=== PATIENT | female | born 1985 | race Asian ===

== ENCOUNTER 2016-10-03 17:06 | Emergency (ER) | payer MEDICAID, OTHER ==
[~2016-10-03 17:06] MED LIST: NO HOME MEDS; WELL100T PO
[2016-10-03] MEDS ORDERED: VENLAFAXINE **XR** 75MG CAPSULE As Ordered ONE (17:32)
--- NOTE | 2016-10-03 18:25 | EDDOCDS ---
Nurse's Notes [facility] Name: Liana Nguyen Age: 30 yrs Sex: Female : 1985 Arrival Date: 10/03/2016 Time: 17:06 Bed 14 Private MD: NO PRIMARY PHYSICIAN, . Diagnosis: Encounter for issue of repeat prescription Presentation: 10/03 17:12 Presenting complaint: Patient states: Out of Effexor and has an appointment the 30th jo3 with PCP. Adult Sepsis Screening: The patient does not have new or worsening altered mentation. Patient's respiratory rate is less than 22. Systolic blood pressure is greater than 100. Patient has a qSOFA score of 0- Negative Sepsis Screen. Suicide/Homicide risk assessment- the patient denies having any suicidal and/or homicidal ideations and does not present with any other emotional, behavioral or mental health complaints. Status: Patient is not a coordinator volunteer services or dependent. Transition of care: patient was not received from another setting of care. 17:12 Acuity: LISSETH Level 5 jo3 17:12 Method Of Arrival: Walkin/Carried/Asstd jo3 Triage Assessment: 17:16 General: Appears in no apparent distress, Behavior is cooperative. HIV screening NA for jo3 this visit Offered previously. Neurological: Level of Consciousness is awake, alert, Oriented to person, place, time. Respiratory: Airway is patent Respiratory effort is even, unlabored. 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 Effexor XR 150 mg Oral cp24 1 cap once daily (Last dose: 09/29/2016) 2. Strattera 10 mg oral cap Daily 3. trazodone 150 mg Oral tab nightly - PMHx: Depression; - PSHx: none; - Social history: Smoking status: Patient uses tobacco products, heavy tobacco smoker. No barriers to communication noted, The patient speaks fluent Macedonian, Speaks appropriately for age. - Family history: Not pertinent. - : The pt / caregiver states he / she is not on anticoagulants. Home medication list is obtained from the patient. - Exposure Risk Screening:: None identified. Screenin:36 Screening information is obtained from the patient. Fall risk: No risks identified. dsf Assistance ADL's: requires no assistance with activities of daily living. Abuse/DV Screen: The patient / caregiver reports he/she is: not in a situation that causes fear, pain or injury. Nutritional screening: No deficits noted. Advance Directives: Currently, there is no health care proxy. home support is adequate. Assessment: 17:35 General: pt states " I feel like a crack head getting this here. Are the pharmacy's dsf opened?" Pt informed she received a dose here and she can get her prescription tomorrow. Dr. Porter notified . 17:36 Adult Sepsis Screening: The patient does not have new or worsening altered mentation. dsf Patient's respiratory rate is less than 22. Systolic blood pressure is greater than 100. Patient has a qSOFA score of 0- Negative Sepsis Screen. General: Appears in no apparent distress, Behavior is appropriate for age, cooperative. Pain: Denies pain. Neurological: Level of Consciousness is awake, alert. Cardiovascular: No deficits noted. Respiratory: No deficits noted. Derm: Skin is pink, warm & dry. 18:24 General: Appears in no apparent distress, Behavior is appropriate for age, cooperative. dsf Neurological: Level of Consciousness is awake, alert. Cardiovascular: Capillary refill < 3 seconds. Respiratory: Airway is patent Respiratory effort is even, unlabored, Respiratory pattern is regular, symmetrical. Derm: Skin is pink, warm & dry. Social Work Consult: 18:14 Social Work Note: PT states she was d/c from dual dx rehab in [place], [place] recently, is ac out of her Effexor and will not be able to see her PCP, Dr. Arguello until 10/11/16. Pt is currently attending IOP at [facility] Addiction services. Pt denies SI/HI, no AH/VH. Pt provided with emergency #'s. No further intervention required at this time. Vital Signs: 17:07 BP 113 / 80; Pulse 100; Resp 18 S; Temp 97.9(O); Pulse Ox 100% on R/A; Weight 77.11 kg gr2 (R); Height 5 ft. 4 in. (162.56 cm) (R); Pain 3/10; 17:07 Body Mass Index 29.18 (77.11 kg, 162.56 cm) gr2 Vitals: 17:07 Log In Time: October 03, 2016 at 17:07. gr2 ED Course: 17:07 Patient visited by Sarah Henriquez. gr2 17:07 NO PRIMARY PHYSICIAN, . is Private Physician. gr2 17:07 Patient moved to Waiting gr2 17:09 Patient visited by Sarah Henriquez. gr2 17:09 Patient moved to Pre RCE gr2 17:13 Triage Initiated jo3 17:23 Yinka Porter MD is Attending Physician. br1 17:23 Patient moved to 14 sew 17:32 Patient visited by Yinka Porter MD. br1 17:36 Patient visited by Argentina Esquivel RN. dsf 17:36 The patient / caregiver is instructed regarding the plan of care and ED course. dsf 17:36 No IV's were initiated during this patient's visit. No procedures done that require dsf assistance. 17:40 Nikita Arguello MD is Referral Physician. br1 17:40 [facility] is Referral Physician. br1 17:58 [facility] Payment Agreement was scanned into [employer] and attached to record. [email or web address] Administered Medications: 17:35 Drug: Venlafaxine 150 mg [venlafaxine ER 75 mg capsule,extended release 24 hr (2 caps)] dsf Route: PO; Order Results: There are currently no results for this order. Outcome: 17:36 No special radiology studies were completed. dsf 17:41 Discharge ordered by Provider. br1 18:23 Discharge Assessment: Patient awake, alert and oriented x 3. No cognitive and/or dsf functional deficits noted. Patient verbalized understanding of disposition instructions. patient administered narcotics - no. The following High Risk Discharge criteria are identified: None. Discharged to home ambulatory. Condition: stable. Discharge instructions given to patient, Instructed on discharge instructions, follow up and referral plans. medication usage, Demonstrated understanding of instructions, medications, Pt was receptive of discharge instructions/ teaching. Prescriptions given X 1. Property sent home with patient. 18:24 Patient left the ED. dsf Signatures: Georges Camacho PSA PSA Mary DailyRN RN jo3 Yinka Porter MD MD br1 Argentina Esquivel RN RN dsf Lindsay Cha [facility] Sarah Henriquez gr2 Luanne Rosenberg, Reg Reg ks16 Corrections: (The following items were deleted from the chart) 17:17 17:12 Presenting complaint: Patient states: Out of medications and has an appointment jo3 the with PCP joReal : 17:12 Adult Sepsis Screening: The patient does not have new or worsening altered jo3 mentation. Patient's respiratory rate is less than 22. Systolic blood pressure is greater than 100. Patient has a qSOFA score of 0- Negative Sepsis Screen. jo3 MTDD
--- NOTE | 2016-10-03 18:25 | EDDOCDS ---
Physician Documentation [facility] Name: Liana Nguyen Age: 30 yrs Sex: Female : 1985 Arrival Date: 10/03/2016 Time: 17:06 Bed 14 Private MD: NO PRIMARY PHYSICIAN, . Disposition: 10/03/16 17:41 Discharged to Home/Self Care. Impression: Encounter for issue of repeat prescription. - Condition is Stable. - Discharge Instructions: Depression, Adult, Medicine Refill at the Emergency Department. - Prescriptions for Effexor XR 150 mg Oral capsule,extended release 24hr - take 1 capsule by ORAL route once daily; 7 capsule. - Medication Reconciliation, Local Pharmacy Hours form. - Follow up: Nikita Arguello MD; When: 1 week; Reason: Recheck today's complaints. Follow up: [facility]; When: 4 - 5 days; Reason: Recheck today's complaints. - Problem is new. - Symptoms are resolved. - Notes: You were seen in the ED for a refill of your Effexor XR 150 mg daily. A short refill was provided. Please keep your appointment with your primary doctor in 1 week for ongoing care. You may also establish mental health care as an outpatient at the referral provided to you - please call to arrange to be seen. Return to the ED for any worsening depression, thoughts of harming self or others or any other concerns. Historical: - Allergies: No known drug Allergies; - Home Meds: 1. Effexor XR 150 mg Oral cp24 1 cap once daily (Last dose: 09/29/2016) 2. Strattera 10 mg oral cap Daily 3. trazodone 150 mg Oral tab nightly - PMHx: Depression; - PSHx: none; - Social history: Smoking status: Patient uses tobacco products, heavy tobacco smoker. No barriers to communication noted, The patient speaks fluent [place] Islander, Speaks appropriately for age. - Family history: Not pertinent. - : The pt / caregiver states he / she is not on anticoagulants. Home medication list is obtained from the patient. - Exposure Risk Screening:: None identified. 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 4 in. (162.56 cm) (R); Pain 3/10; 17:07 Body Mass Index 29.18 (77.11 kg, 162.56 cm) gr2 MDM: 17:32 Venlafaxine Extended Release 24 hour Capsule 150 mg PO once ordered. br1 17:37 Consult PFS/PSA/Actuarial Intern: Resources/Social Work ordered. br1 17:58 Financial registration complete. ks16 17:58 [facility] Payment Agreement was scanned into [employer] and attached to record. ks16 Administered Medications: 17:35 Drug: Venlafaxine 150 mg [venlafaxine ER 75 mg capsule,extended release 24 hr (2 caps)] dsf Route: PO; Signatures: Mary Dumont RN RN jo3 Yinka Porter MD MD br1 Argentina Esquivel RN RN dsf Luanne Rosenberg, Reg Reg ks16 The chart was reviewed and I authenticate all verbal orders and agree with the evaluation and treatment provided.Attachments: 17:58 [facility] Payment Agreement ks16 MTDD
--- NOTE | 2016-10-05 19:25 | EDDOCDS ---
Nurse's Notes [facility] Name: Liana Nguyen Age: 30 yrs Sex: Female : 1985 Arrival Date: 10/03/2016 Time: 17:06 Bed 14 Private MD: NO PRIMARY PHYSICIAN, . Diagnosis: Encounter for issue of repeat prescription Presentation: 10/03 17:12 Presenting complaint: Patient states: Out of Effexor and has an appointment the 30th jo3 with PCP. Adult Sepsis Screening: The patient does not have new or worsening altered mentation. Patient's respiratory rate is less than 22. Systolic blood pressure is greater than 100. Patient has a qSOFA score of 0- Negative Sepsis Screen. Suicide/Homicide risk assessment- the patient denies having any suicidal and/or homicidal ideations and does not present with any other emotional, behavioral or mental health complaints. Status: Patient is not a food services coordinator or dependent. Transition of care: patient was not received from another setting of care. 17:12 Acuity: LISSETH Level 5 jo3 17:12 Method Of Arrival: Walkin/Carried/Asstd jo3 Triage Assessment: 17:16 General: Appears in no apparent distress, Behavior is cooperative. HIV screening NA for jo3 this visit Offered previously. Neurological: Level of Consciousness is awake, alert, Oriented to person, place, time. Respiratory: Airway is patent Respiratory effort is even, unlabored. 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 Effexor XR 150 mg Oral cp24 1 cap once daily (Last dose: 09/29/2016) 2. Strattera 10 mg oral cap Daily 3. trazodone 150 mg Oral tab nightly - PMHx: Depression; - PSHx: none; - Social history: Smoking status: Patient uses tobacco products, heavy tobacco smoker. No barriers to communication noted, The patient speaks fluent Polish, Speaks appropriately for age. - Family history: Not pertinent. - : The pt / caregiver states he / she is not on anticoagulants. Home medication list is obtained from the patient. - Exposure Risk Screening:: None identified. Screenin:36 Screening information is obtained from the patient. Fall risk: No risks identified. dsf Assistance ADL's: requires no assistance with activities of daily living. Abuse/DV Screen: The patient / caregiver reports he/she is: not in a situation that causes fear, pain or injury. Nutritional screening: No deficits noted. Advance Directives: Currently, there is no health care proxy. home support is adequate. Assessment: 17:35 General: pt states " I feel like a crack head getting this here. Are the pharmacy's dsf opened?" Pt informed she received a dose here and she can get her prescription tomorrow. Dr. Porter notified . 17:36 Adult Sepsis Screening: The patient does not have new or worsening altered mentation. dsf Patient's respiratory rate is less than 22. Systolic blood pressure is greater than 100. Patient has a qSOFA score of 0- Negative Sepsis Screen. General: Appears in no apparent distress, Behavior is appropriate for age, cooperative. Pain: Denies pain. Neurological: Level of Consciousness is awake, alert. Cardiovascular: No deficits noted. Respiratory: No deficits noted. Derm: Skin is pink, warm & dry. 18:24 General: Appears in no apparent distress, Behavior is appropriate for age, cooperative. dsf Neurological: Level of Consciousness is awake, alert. Cardiovascular: Capillary refill < 3 seconds. Respiratory: Airway is patent Respiratory effort is even, unlabored, Respiratory pattern is regular, symmetrical. Derm: Skin is pink, warm & dry. Social Work Consult: 18:14 Social Work Note: PT states she was d/c from dual dx rehab in [place], [place] recently, is ac out of her Effexor and will not be able to see her PCP, Dr. Arguello until 10/11/16. Pt is currently attending IOP at [facility] Addiction services. Pt denies SI/HI, no AH/VH. Pt provided with emergency #'s. No further intervention required at this time. Vital Signs: 17:07 BP 113 / 80; Pulse 100; Resp 18 S; Temp 97.9(O); Pulse Ox 100% on R/A; Weight 77.11 kg gr2 (R); Height 5 ft. 4 in. (162.56 cm) (R); Pain 3/10; 17:07 Body Mass Index 29.18 (77.11 kg, 162.56 cm) gr2 Vitals: 17:07 Log In Time: October 03, 2016 at 17:07. gr2 ED Course: 17:07 Patient visited by Sarah Henriquez. gr2 17:07 NO PRIMARY PHYSICIAN, . is Private Physician. gr2 17:07 Patient moved to Waiting gr2 17:09 Patient visited by Sarah Henriquez. gr2 17:09 Patient moved to Pre RCE gr2 17:13 Triage Initiated jo3 17:23 Yinka Porter MD is Attending Physician. br1 17:23 Patient moved to 14 sew 17:32 Patient visited by Yinka Porter MD. br1 17:36 Patient visited by Argentina Esquivel RN. dsf 17:36 The patient / caregiver is instructed regarding the plan of care and ED course. dsf 17:36 No IV's were initiated during this patient's visit. No procedures done that require dsf assistance. 17:40 Nikita Arguello MD is Referral Physician. br1 17:[address] [facility] is Referral Physician. br1 17:58 [facility] Payment Agreement was scanned into [employer] and attached to record. ks16 22:14 T-Sheet-- Draft Copy was scanned into [employer] and attached to record. klr Administered Medications: 17:35 Drug: Venlafaxine 150 mg [venlafaxine ER 75 mg capsule,extended release 24 hr (2 caps)] dsf Route: PO; Order Results: There are currently no results for this order. Outcome: 17:36 No special radiology studies were completed. dsf 17:41 Discharge ordered by Provider. br1 18:23 Discharge Assessment: Patient awake, alert and oriented x 3. No cognitive and/or dsf functional deficits noted. Patient verbalized understanding of disposition instructions. patient administered narcotics - no. The following High Risk Discharge criteria are identified: None. Discharged to home ambulatory. Condition: stable. Discharge instructions given to patient, Instructed on discharge instructions, follow up and referral plans. medication usage, Demonstrated understanding of instructions, medications, Pt was receptive of discharge instructions/ teaching. Prescriptions given X 1. Property sent home with patient. 18:24 Patient left the ED. dsf Signatures: Georges Camacho, PSA PSA Mary Daily RN RN jo3 Yinka Porter MD MD br1 Argentina Esquivel RN RN dsf Lindsay Cha Gainslee gr2 Luanne Rosenberg Reg Reg ks16 Estrella Sheppard Corrections: (The following items were deleted from the chart) 17:17 17:12 Presenting complaint: Patient states: Out of medications and has an appointment jo3 the with PCP jo3 17:17 17:12 Adult Sepsis Screening: The patient does not have new or worsening altered jo3 mentation. Patient's respiratory rate is less than 22. Systolic blood pressure is greater than 100. Patient has a qSOFA score of 0- Negative Sepsis Screen. jo3 Chart Complete MTDD
--- NOTE | 2016-10-05 19:25 | EDDOCDS ---
Physician Documentation [facility] Name: Liana Nguyen Age: 30 yrs Sex: Female : 1985 Arrival Date: 10/03/2016 Time: 17:06 Bed 14 Private MD: NO PRIMARY PHYSICIAN, . Disposition: 10/03/16 17:41 Discharged to Home/Self Care. Impression: Encounter for issue of repeat prescription. - Condition is Stable. - Discharge Instructions: Depression, Adult, Medicine Refill at the Emergency Department. - Prescriptions for Effexor XR 150 mg Oral capsule,extended release 24hr - take 1 capsule by ORAL route once daily; 7 capsule. - Medication Reconciliation, Local Pharmacy Hours form. - Follow up: Nikita Arguello MD; When: 1 week; Reason: Recheck today's complaints. Follow up: [facility]; When: 4 - 5 days; Reason: Recheck today's complaints. - Problem is new. - Symptoms are resolved. - Notes: You were seen in the ED for a refill of your Effexor XR 150 mg daily. A short refill was provided. Please keep your appointment with your primary doctor in 1 week for ongoing care. You may also establish mental health care as an outpatient at the referral provided to you - please call to arrange to be seen. Return to the ED for any worsening depression, thoughts of harming self or others or any other concerns. Historical: - Allergies: No known drug Allergies; - Home Meds: 1. Effexor XR 150 mg Oral cp24 1 cap once daily (Last dose: 09/29/2016) 2. Strattera 10 mg oral cap Daily 3. trazodone 150 mg Oral tab nightly - PMHx: Depression; - PSHx: none; - Social history: Smoking status: Patient uses tobacco products, heavy tobacco smoker. No barriers to communication noted, The patient speaks fluent Palestinian, Speaks appropriately for age. - Family history: Not pertinent. - : The pt / caregiver states he / she is not on anticoagulants. Home medication list is obtained from the patient. - Exposure Risk Screening:: None identified. 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 4 in. (162.56 cm) (R); Pain 3/10; 17:07 Body Mass Index 29.18 (77.11 kg, 162.56 cm) gr2 MDM: 17:32 Venlafaxine Extended Release 24 hour Capsule 150 mg PO once ordered. br1 17:37 Consult PFS/PSA/Record Pressman: Resources/Social Work ordered. br1 17:58 Financial registration complete. ks16 17:58 [facility] Payment Agreement was scanned into [employer] and attached to record. ks16 22:14 T-Sheet-- Draft Copy was scanned into [employer] and attached to record. klr Administered Medications: 17:35 Drug: Venlafaxine 150 mg [venlafaxine ER 75 mg capsule,extended release 24 hr (2 caps)] dsf Route: PO; Signatures: Mary Dumont RN RN jo3 Yinka Porter MD MD br1 Argentina Esquivel RN RN dsf Luanne Rosenberg, Reg Reg ks16 Estrella Sheppard klr The chart was reviewed and I authenticate all verbal orders and agree with the evaluation and treatment provided.Attachments: 17:58 [facility] Payment Agreement ks16 22:14 T-Sheet-- Draft Copy klr Chart Complete MTDD
--- NOTE | 2016-10-05 19:25 | EDDOCDS ---
Physician Documentation [facility] Name: Liana Nguyen Age: 30 yrs Sex: Female : 1985 Arrival Date: 10/03/2016 Time: 17:06 Bed 14 Private MD: NO PRIMARY PHYSICIAN, . Disposition: 10/03/16 17:41 Discharged to Home/Self Care. Impression: Encounter for issue of repeat prescription. - Condition is Stable. - Discharge Instructions: Depression, Adult, Medicine Refill at the Emergency Department. - Prescriptions for Effexor XR 150 mg Oral capsule,extended release 24hr - take 1 capsule by ORAL route once daily; 7 capsule. - Medication Reconciliation, Local Pharmacy Hours form. - Follow up: Nikita Arguello MD; When: 1 week; Reason: Recheck today's complaints. Follow up: [facility]; When: 4 - 5 days; Reason: Recheck today's complaints. - Problem is new. - Symptoms are resolved. - Notes: You were seen in the ED for a refill of your Effexor XR 150 mg daily. A short refill was provided. Please keep your appointment with your primary doctor in 1 week for ongoing care. You may also establish mental health care as an outpatient at the referral provided to you - please call to arrange to be seen. Return to the ED for any worsening depression, thoughts of harming self or others or any other concerns. Historical: - Allergies: No known drug Allergies; - Home Meds: 1. Effexor XR 150 mg Oral cp24 1 cap once daily (Last dose: 09/29/2016) 2. Strattera 10 mg oral cap Daily 3. trazodone 150 mg Oral tab nightly - PMHx: Depression; - PSHx: none; - Social history: Smoking status: Patient uses tobacco products, heavy tobacco smoker. No barriers to communication noted, The patient speaks fluent Mauritanian, Speaks appropriately for age. - Family history: Not pertinent. - : The pt / caregiver states he / she is not on anticoagulants. Home medication list is obtained from the patient. - Exposure Risk Screening:: None identified. 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 4 in. (162.56 cm) (R); Pain 3/10; 17:07 Body Mass Index 29.18 (77.11 kg, 162.56 cm) gr2 MDM: 17:32 Venlafaxine Extended Release 24 hour Capsule 150 mg PO once ordered. br1 17:37 Consult PFS/PSA/Poultry Debeaker: Resources/Social Work ordered. br1 17:58 Financial registration complete. ks16 17:58 [facility] Payment Agreement was scanned into [employer] and attached to record. ks16 22:14 T-Sheet-- Draft Copy was scanned into [employer] and attached to record. klr Administered Medications: 17:35 Drug: Venlafaxine 150 mg [venlafaxine ER 75 mg capsule,extended release 24 hr (2 caps)] dsf Route: PO; Signatures: Mary Dumont RN RN jo3 Yinka Porter MD MD br1 Argentina Esquivel RN RN dsf Luanne Rosenberg, Reg Reg ks16 Estrella Sheppard klr The chart was reviewed and I authenticate all verbal orders and agree with the evaluation and treatment provided.Attachments: 17:58 [facility] Payment Agreement ks16 22:14 T-Sheet-- Draft Copy klr Chart Complete MTDD
== END 2016-10-03 18:24 | disposition home or self-care (01) ==
LOC: M ED 17:06
DX: Z76.0 Encounter for issue of repeat prescription (principal); F32.9 Major depressive disorder, single episode, unspecified; F17.210 Nicotine dependence, cigarettes, uncomplicated; Z79.899 Other long term (current) drug therapy

== ENCOUNTER 2016-10-11 08:45 | Outpatient (RCR) | payer MEDICAID | END 2016-10-12 | disposition home or self-care (01) | LOC: M OUTALCOH 08:45 | PROVIDERS: ATTEND Psychiatry & Neurology Psychiatry | DX: F14.20 Cocaine dependence, uncomplicated (principal); F15.20 Other stimulant dependence, uncomplicated; F10.10 Alcohol abuse, uncomplicated; F17.200 Nicotine dependence, unspecified, uncomplicated ==

== ENCOUNTER → 2016-11-09 | Outpatient (RCR) | payer OTHER | LOC: M OUTALCOH 10-13 08:49 | PROVIDERS: ATTEND Psychiatry & Neurology Psychiatry | DX: F14.20 Cocaine dependence, uncomplicated (principal); F15.20 Other stimulant dependence, uncomplicated; F10.10 Alcohol abuse, uncomplicated; F17.200 Nicotine dependence, unspecified, uncomplicated ==

== ENCOUNTER 2016-12-08 11:00 | Outpatient (RCR) | payer OTHER | END 2016-12-10 | LOC: M OUTALCOH 11:00 | PROVIDERS: ATTEND Psychiatry & Neurology Psychiatry | DX: F10.10 Alcohol abuse, uncomplicated (principal); F15.20 Other stimulant dependence, uncomplicated; F14.20 Cocaine dependence, uncomplicated; F17.200 Nicotine dependence, unspecified, uncomplicated ==

== ENCOUNTER 2017-01-03 20:28 | Emergency (ER) | payer MEDICAID, OTHER ==
[~2017-01-03] VITALS: Ht 162.6 cm; Wt 77.1 kg
[2017-01-03 20:41] VITALS: BP 182/79
[2017-01-03] MEDS ORDERED: EFFE75CA75 PO (20:44)
[2017-01-03] MEDS ORDERED: STRA10CA PO (20:44)
[2017-01-03] MEDS ORDERED: TRAZ150T14 PO (20:44)
[2017-01-03] MEDS ORDERED: IBUPROFEN 600 MG TAB PO ONE (22:45)
[2017-01-03] MEDS ORDERED: TYLE325C PO (22:56)
[2017-01-03] MEDS ORDERED: IBUP600T26 PO (22:56)
== END 2017-01-03 23:16 | disposition home or self-care (01) ==
LOC: M ED 23:06
DX: J06.9 Acute upper respiratory infection, unspecified (principal); F41.9 Anxiety disorder, unspecified; F33.9 Major depressive disorder, recurrent, unspecified; F17.200 Nicotine dependence, unspecified, uncomplicated; Z87.898 Personal history of other specified conditions

== ENCOUNTER 2017-01-05 16:00 | Outpatient (RCR) | payer MEDICAID ==
[~2017-01-05 16:00] MED LIST changes: +EFFE75CA75 PO; +IBUP600T26 PO; +STRA10CA PO; +TRAZ150T14 PO; +TYLE325C PO
== END 2017-01-09 ==
LOC: M OUTALCOH 16:00
PROVIDERS: ATTEND Psychiatry & Neurology Psychiatry
DX: F14.20 Cocaine dependence, uncomplicated (principal); F15.20 Other stimulant dependence, uncomplicated; F10.10 Alcohol abuse, uncomplicated; F17.200 Nicotine dependence, unspecified, uncomplicated

== ENCOUNTER → 2017-02-09 | Outpatient (RCR) | payer MEDICAID | LOC: M OUTALCOH 01-17 14:22 | PROVIDERS: ATTEND Psychiatry & Neurology Psychiatry | DX: F14.20 Cocaine dependence, uncomplicated (principal); F15.20 Other stimulant dependence, uncomplicated; F10.10 Alcohol abuse, uncomplicated; F17.200 Nicotine dependence, unspecified, uncomplicated ==

== ENCOUNTER 2017-03-10 13:00 | Outpatient (RCR) | payer MEDICAID ==
[~2017-03-10 13:00] MED LIST changes: +IBUP-1022 PO; -IBUP600T26 PO; -TRAZ150T14 PO; +TRAZ1TAB14 PO
== END 2017-03-11 ==
LOC: M OUTALCOH 13:00
PROVIDERS: ATTEND Psychiatry & Neurology Psychiatry
DX: F14.20 Cocaine dependence, uncomplicated (principal); F15.20 Other stimulant dependence, uncomplicated; F10.10 Alcohol abuse, uncomplicated; F17.200 Nicotine dependence, unspecified, uncomplicated

== ENCOUNTER → 2017-04-11 | Outpatient (RCR) | payer MEDICAID | LOC: M OUTALCOH 03-16 11:15 | PROVIDERS: ATTEND Psychiatry & Neurology Psychiatry | DX: F14.20 Cocaine dependence, uncomplicated (principal); F15.20 Other stimulant dependence, uncomplicated; F10.10 Alcohol abuse, uncomplicated; F17.200 Nicotine dependence, unspecified, uncomplicated ==

== ENCOUNTER 2017-05-09 16:00 | Outpatient (RCR) | payer MEDICAID | END 2017-05-12 | LOC: M OUTALCOH 16:00 | PROVIDERS: ATTEND Psychiatry & Neurology Psychiatry | DX: F14.20 Cocaine dependence, uncomplicated (principal); F15.20 Other stimulant dependence, uncomplicated; F10.10 Alcohol abuse, uncomplicated; F17.200 Nicotine dependence, unspecified, uncomplicated ==

== ENCOUNTER 2017-06-10 15:00 | Outpatient (RCR) | payer MEDICAID | END 2017-06-11 | LOC: M OUTALCOH 15:00 | PROVIDERS: ATTEND Psychiatry & Neurology Psychiatry | DX: F14.20 Cocaine dependence, uncomplicated (principal); F10.10 Alcohol abuse, uncomplicated; F17.200 Nicotine dependence, unspecified, uncomplicated ==

== ENCOUNTER 2017-07-21 14:00 | Outpatient (RCR) | payer MEDICAID | END 2017-08-11 | LOC: M OUTALCOH 14:00 | PROVIDERS: ATTEND Psychiatry & Neurology Psychiatry | DX: F14.20 Cocaine dependence, uncomplicated (principal); F15.20 Other stimulant dependence, uncomplicated; F10.10 Alcohol abuse, uncomplicated; F17.200 Nicotine dependence, unspecified, uncomplicated ==

== ENCOUNTER → 2018-06-07 | Outpatient (CLI) | payer MEDICAID | LOC: M OUTALCOH 07:41 | DX: Z13.89 Encounter for screening for other disorder (principal); F15.20 Other stimulant dependence, uncomplicated ==

== ENCOUNTER 2018-06-16 13:14 | Outpatient (RCR) | payer MEDICAID | END 2018-07-12 | LOC: M OUTALCOH 06-26 10:30 | DX: F14.20 Cocaine dependence, uncomplicated (principal); F15.20 Other stimulant dependence, uncomplicated; F10.10 Alcohol abuse, uncomplicated; F17.200 Nicotine dependence, unspecified, uncomplicated ==

== ENCOUNTER → 2018-07-06 | Outpatient (REF) | payer MEDICAID, OTHER | LOC: M SFHCPLAZ 07-07 13:55 | DX: Z01.419 Encounter for gynecological examination (general) (routine) without abnormal findings (principal) ==

== ENCOUNTER 2018-07-19 16:00 | Outpatient (RCR) | payer MEDICAID | END 2018-08-11 | LOC: M OUTALCOH 07-24 10:30 | DX: F14.20 Cocaine dependence, uncomplicated (principal); F15.20 Other stimulant dependence, uncomplicated; F10.10 Alcohol abuse, uncomplicated; F17.200 Nicotine dependence, unspecified, uncomplicated ==

== ENCOUNTER → 2018-09-11 | Outpatient (RCR) | payer MEDICAID ==
[~2018-09-11] MED LIST changes: +EFFE75CA2 PO; -EFFE75CA75 PO
== END ==
LOC: M OUTALCOH 08-21 15:08
PROVIDERS: ATTEND Psychiatry & Neurology Psychiatry
DX: F14.20 Cocaine dependence, uncomplicated (principal); F15.20 Other stimulant dependence, uncomplicated; F10.10 Alcohol abuse, uncomplicated; F17.200 Nicotine dependence, unspecified, uncomplicated

== ENCOUNTER 2018-10-09 14:00 | Outpatient (RCR) | payer MEDICAID | END 2018-10-12 | LOC: M OUTALCOH 14:00 | PROVIDERS: ATTEND Psychiatry & Neurology Psychiatry | DX: F14.20 Cocaine dependence, uncomplicated (principal); F15.20 Other stimulant dependence, uncomplicated; F10.10 Alcohol abuse, uncomplicated; F17.200 Nicotine dependence, unspecified, uncomplicated ==

== ENCOUNTER 2018-11-08 14:57 | Outpatient (RCR) | payer MEDICAID | END 2018-11-09 | LOC: M OUTALCOH 14:57 | PROVIDERS: ATTEND Psychiatry & Neurology Psychiatry | DX: F14.20 Cocaine dependence, uncomplicated (principal); F15.20 Other stimulant dependence, uncomplicated; F10.10 Alcohol abuse, uncomplicated; F17.200 Nicotine dependence, unspecified, uncomplicated ==

== ENCOUNTER 2018-11-22 14:08 | Outpatient (RCR) | payer MEDICAID | END 2018-12-10 | LOC: M OUTALCOH 14:08 | PROVIDERS: ATTEND Psychiatry & Neurology Psychiatry | DX: F14.20 Cocaine dependence, uncomplicated (principal); F15.20 Other stimulant dependence, uncomplicated; F10.10 Alcohol abuse, uncomplicated; F17.200 Nicotine dependence, unspecified, uncomplicated ==

== ENCOUNTER → 2019-06-08 | Outpatient (REF) | payer MEDICAID | LOC: M LAB REF 15:07 | PROVIDERS: ATTEND Physician Assistant | DX: J02.9 Acute pharyngitis, unspecified (principal) ==

== ENCOUNTER → 2019-08-22 | Outpatient (CLI) | payer MEDICAID, OTHER ==
[2019-08-22 13:59] LABS: FOLLICLE STIMULATING HORMONE 4.6 mIU/mL; FREE T4 0.85 NG/DL (0.76-1.46); LUTEINIZING HORMONE 11.5 mIU/mL; PROGESTERONE 7.95 NG/ML
[2019-08-22 14:10] LABS: HEPATITIS C VIRUS ABY INDEX 0.1 INDEX (<0.8)
[2019-08-22 14:12] LABS: HIV 1&2 SCREEN CENTAUR NEGATIVE (NEGATIVE)
== END ==
LOC: M PLALAB 10:53
PROVIDERS: ATTEND Specialist
DX: N92.6 Irregular menstruation, unspecified (principal); Z20.2 Contact with and (suspected) exposure to infections with a predominantly sexual mode of transmission

== ENCOUNTER 2019-09-17 18:11 | Emergency (ER) | payer MEDICAID, OTHER, SELFPAY ==
[~2019-09-17] VITALS: Ht 160 cm; Wt 72.9 kg
[2019-09-17] MEDS ORDERED: CLOM50TA9 (18:19)
[2019-09-17] MEDS ORDERED: [UNRECOGNIZED DRUG - OTHER] (18:19)
[2019-09-17 18:55] LABS: BASO # 0.1 10^3/uL (0.0-0.2); BASO % 0.4 % (0.0-1.0); EOS # 0.1 10^3/uL (0.0-0.5); EOS % 0.4 % (0.0-3.0); HEMATOCRIT 39.4 % (36.0-47.0); HEMOGLOBIN 12.6 g/dl (12.0-15.5); LYMPH # 1.8 10^3/uL (1.5-5.0); LYMPH % 14.1 % (24.0-44.0); MEAN CORPUSCULAR HEMOGLOBIN 28.1 pg (27.0-33.0); MEAN CORPUSCULAR VOLUME 87.8 fl (80.0-96.0); MONO # 0.6 10^3/uL (0.0-0.8); MONO % 4.4 % (0.0-5.0); NEUTROPHILS % 80.3 % (36.0-66.0); PLATELET COUNT, AUTOMATED 339 10^3/uL (150-450); RED BLOOD COUNT 4.49 10^6/uL (4.00-5.40); WHITE BLOOD COUNT 12.5 10^3/uL (4.0-10.0)
[2019-09-17] MEDS ORDERED: KETOROLAC 30 MG/ML VIAL (J1885) IV ONE (19:00)
[2019-09-17] MEDS ORDERED: NS 1,000 ML IV ONE (19:00)
[2019-09-17] MEDS ORDERED: ONDANSETRON 4MG/2ML VIAL (J2405) IV ONE (19:15)
[2019-09-17 19:22] LABS: ALBUMIN 3.6 GM/DL (3.2-5.2); ALT/SGPT 18 U/L (12-78); AMYLASE 57 U/L (25-115); BILIRUBIN,DIRECT 0.1 MG/DL (0.0-0.2); BILIRUBIN,TOTAL 0.3 MG/DL (0.2-1.0); BLOOD UREA NITROGEN 7 MG/DL (7-18); CALCIUM LEVEL 9.2 MG/DL (8.5-10.1); CARBON DIOXIDE LEVEL 26 MEQ/L (21-32); CHLORIDE LEVEL 106 MEQ/L (98-107); CREATININE FOR GFR 0.72 MG/DL (0.55-1.30); GLOMERULAR FILTRATION RATE > 60.0 (>60); GLUCOSE, FASTING 92 MG/DL (70-100); LIPASE 101 U/L (73-393); POTASSIUM SERUM 4.3 MEQ/L (3.5-5.1); SODIUM LEVEL 139 MEQ/L (136-145); TOTAL PROTEIN 7.4 GM/DL (6.4-8.2)
[2019-09-17] MEDS ORDERED: ISOVUE-370 76% 100ML VIAL (Q9967) As Ordered ONE (19:38)
--- NOTE | 2019-09-17 20:44 | REPVR ---
PROCEDURE INFORMATION: Exam: CT Abdomen And Pelvis With Contrast Exam date and time: 09/17/2019 7:54 PM Age: 33 years old Clinical indication: Abdominal pain; Localized; Left upper quadrant (luq); Additional info: Luq pain TECHNIQUE: Imaging protocol: Computed tomography of the abdomen and pelvis with intravenous contrast. Axial, coronal and sagittal reformatted images were created and reviewed. Radiation optimization: All CT scans at this facility use at least one of these dose optimization techniques: automated exposure control; mA and/or kV adjustment per patient size (includes targeted exams where dose is matched to clinical indication); or iterative reconstruction. Contrast material: ISOVUE 370; Contrast volume: 100 ml; Contrast route: IV; COMPARISON: CT ABD PELVIS WITH CONTRAST 06/14/2015 2:52 PM FINDINGS: Liver: Unremarkable. Gallbladder and bile ducts: No radiodense gallstones. No biliary ductal dilatation. Pancreas: Unremarkable. Spleen: Unremarkable. Adrenals: Unremarkable. Kidneys and ureters: No mass. No radiodense calculi. No hydronephrosis. Stomach and bowel: No bowel wall thickening. No obstruction. No pneumatosis. Appendix: Normal. Intraperitoneal space: Small nonspecific free pelvic fluid, likely physiologic. No organized fluid collection. No free air. Vasculature: Unremarkable. No aneurysm. Lymph nodes: No pathologically enlarged lymph nodes. Bladder: Unremarkable. Reproductive: Bilateral adnexal cystic lesions, measuring up to 5.9 x 4.8 cm on the left and 3.6 x 3.1 cm on the right. Bones/joints: No acute osseous abnormality. Mild degenerative changes. Soft tissues: Unremarkable. IMPRESSION: 1. Bilateral adnexal cystic lesions, measuring up to 5.9 x 4.8 cm on the left and 3.6 x 3.1 cm on the right. If clinically indicated, pelvic ultrasound may be obtained for further evaluation. 2. Additional findings, as above. Electronically signed by: Juan Pablo Akbar On 09/17/2019 20:44:01 PM
--- NOTE | 2019-09-17 22:13 | REPVR ---
PROCEDURE INFORMATION: Exam: US Pelvis Complete, Transabdominal and US Duplex Artery and Vein, Ovaries, Complete Exam date and time: 09/17/2019 9:36 PM Age: 33 years old Clinical indication: Pain and abnormal findings; Abnormal imaging test; Abdominal pain; Lower abdomen; Additional info: Large cysts seen CT, , ensure blood flow TECHNIQUE: Imaging protocol: Real-time transabdominal pelvic ultrasound with image documentation. Real-time duplex ultrasound scan of the arterial and venous flow of the ovaries with B-mode, color Doppler flow and spectral waveform analysis. Complete Pelvis, Complete Duplex. COMPARISON: CT ABD/PEL W/IV CONTRAST ONLY 09/17/2019 7:49 PM FINDINGS: Uterus/cervix: 9.2 x 4.5 x 5.3 cm. Normal endometrial thickness, measuring approximately 14 mm. Right ovary: 5 x 3.9 x 4.9 cm. 3 x 3.1 x 2.9 cm complex cystic lesion. No mass. Normal arterial and venous blood flow. Left ovary: 6.9 x 5.7 x 7.8 cm. 6.2 x 4.8 x 5.7 cm complex cystic lesion. No mass. Normal arterial and venous blood flow. Free fluid: None. Bladder: Normal. IMPRESSION: Bilateral complex ovarian cystic lesions, likely hemorrhagic cysts or endometriomas. Electronically signed by: Juan Pablo Akbar On 09/17/2019 22:13:17 PM
[2019-09-17] MEDS ORDERED: ACETAMINOPHEN 500 MG TAB PO ONE (22:15)
[2019-09-17 22:18] VITALS: BP 150/74
--- NOTE | 2019-09-18 13:01 | ED PDOC ---
Post-Departure Follow-Up liyah russell and victorina faxed formal report of pelvic us and ct abd/p for fu Pedrito Luna MD Sep 18, 2019 13:01
== END 2019-09-17 22:22 | disposition home or self-care (01) ==
LOC: M ED 18:11
DX: N83.291 Other ovarian cyst, right side (principal); N83.292 Other ovarian cyst, left side; R10.2 Pelvic and perineal pain; J02.0 Streptococcal pharyngitis; R11.0 Nausea; F41.9 Anxiety disorder, unspecified; F32.9 Major depressive disorder, single episode, unspecified; Z86.19 Personal history of other infectious and parasitic diseases; Z87.19 Personal history of other diseases of the digestive system; F17.210 Nicotine dependence, cigarettes, uncomplicated; Z79.2 Long term (current) use of antibiotics
CPT/HCPCS: 36415; 74177; 76856; 80048; 80076; 82150; 83690; 84702; 85025; 93976; 96361; 96374; 96375; 99284; J1885; J2405; Q9967

== ENCOUNTER → 2021-07-09 | Outpatient (CLI) | payer OTHER ==
[~2021-07-09] MED LIST changes: +CLOM50TA9; +[UNRECOGNIZED DRUG - OTHER]
[2021-07-09 13:06] LABS: BASO % 0.6 % (0.0-1.0); EOS % 0.6 % (0.0-3.0); HEMATOCRIT 42.7 % (36.0-47.0); HEMOGLOBIN 13.7 g/dl (12.0-15.5); LYMPH % 14.1 % (24.0-44.0); MEAN CORPUSCULAR HEMOGLOBIN 28.5 pg (27.0-33.0); MEAN CORPUSCULAR HGB CONC 32.1 g/dl (32.0-36.5); MEAN CORPUSCULAR VOLUME 88.8 fl (80.0-96.0); MONO # 0.5 10^3/uL (0.0-0.8); MONO % 7.3 % (2.0-8.0); NEUTROPHILS # 5.6 10^3/uL (1.5-8.5); PLATELET COUNT, AUTOMATED 370 10^3/uL (150-450); RED BLOOD COUNT 4.81 10^6/uL (4.00-5.40); WHITE BLOOD COUNT 7.2 10^3/uL (4.0-10.0)
[2021-07-09 13:37] LABS: HEMOGLOBIN A1c 5.3 %
[2021-07-09 13:46] LABS: ALBUMIN 3.8 GM/DL (3.2-5.2); ALT/SGPT 28 U/L (12-78); BILIRUBIN,TOTAL 0.5 MG/DL (0.2-1.0); BLOOD UREA NITROGEN 9 MG/DL (7-18); CALCIUM LEVEL 9.5 MG/DL (8.5-10.1); CARBON DIOXIDE LEVEL 32 MEQ/L (21-32); CHLORIDE LEVEL 107 MEQ/L (98-107); CHOLESTEROL LEVEL 230 MG/DL (<200); CHOLESTEROL RISK RATIO 3.432 (<5); FREE T4 0.96 NG/DL (0.76-1.46); GLOMERULAR FILTRATION RATE > 60.0 (>60); GLUCOSE, FASTING 97 MG/DL (70-100); HDL CHOLESTEROL 67 MG/DL (>40); LDL CHOLESTEROL 134 MG/DL (<100); NON-HDL-C 163 MG/DL; POTASSIUM SERUM 4.5 MEQ/L (3.5-5.1); SODIUM LEVEL 139 MEQ/L (136-145); TOTAL PROTEIN 7.5 GM/DL (6.4-8.2); TRIGLYCERIDES LEVEL 144 MG/DL (<150)
== END ==
LOC: M PLALAB 11:01
PROVIDERS: ATTEND Nurse Practitioner Family
DX: R63.5 Abnormal weight gain (principal)

== ENCOUNTER 2021-07-21 17:08 | Emergency (ER) | payer OTHER ==
[~2021-07-21] VITALS: Ht 162.6 cm; Wt 100.6 kg
[2021-07-21 17:10] VITALS: BP 140/80
--- OUTSIDE RECORDS SUMMARY | 2021-07-21 17:17 | CCD ---
Author Author [facility] Organization [facility] Address Unknown Phone Unavailable Care Team Providers Care Supplemental Manager Name Role Phone Romi Berg Unavailable PROBLEMS Type Condition ICD9-CM Code EDZ56-CJ Code Onset Dates Condition S tatus W/U Status Risk SNOMED Code Notes Problem Psychophysiological insomnia F51.04 Active confirme d 426923222 Problem Mood disorder F39 Active confirmed 890640 05 Problem Nicotine use disorder F17.200 Active confirmed 30941838 Problem Vitamin D deficiency E55.9 Active confirmed 30775516 Problem Smoker F17.200 Active confirmed 72698730 Problem 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 Active confirmed 0064029 Problem 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 Active confirmed 537015642 Problem Irregular bleeding N92.6 Active confirmed 8 1686539 ALLERGIES No Known Allergies ENCOUNTERS from 1985 to 2021-05-25 Encounter Location Date Provider Diagnosis [address] [phone] [place] [address] 08 May, 2021 Romi Berg Weight gain R63.5 ; Nicotine use disorder F17.200 ; Screening for diabetes mellitus Z13.1 ; Screening for lipid disorders Z13.220 and Vitamin D deficiency E55.9 IMMUNIZATIONS No Information SOCIAL HISTORY Tobacco Use: Social History Observation Description Date Details (start date - stop date) Current Smoker Sex Assigned At : Social History Observation Description Sex Assigned At Unknown Education: Question Answer Notes Level of Education: Finished High School Language: Question Answer Notes Languages spoken: Albanian Hindu: Question Answer Notes [employer] Sexual Hx: Question Answer Notes Had sex in the last 12 months (vaginal, oral, or anal)? Yes LMP: 05/13/2021 Have you ever had an STD? Yes with Men only Use protection? No Chlamydia? Yes Alcohol Screening: Question Answer Notes Did you have a drink containing alcohol in the past year? Ye s Points 5 Interpretation Positive How often did you have six or more drinks on one occas ion in the past year? Never (0 points) How many drinks did you have on a typica l day when you were drinking in the past year? 3 or 4 (1 point) How often did you have a drink containing alcohol in t he past year? Four or more times a week (4 points) Tobacco Use: Question Answer Notes Are you a: current smoker Patient counseled on the dangers of tobacco use and urged to quit: 08/22/2019 How many cigarettes a day do you smoke? 11-20 Are you interested in quitting? Not ready to quit Counseled the patient on smoking effects, education provided 08/22/2019 REASON FOR REFERRAL No Information VITAL SIGNS Weight 218 lbs May, Weight-kg 98.88 kg May, Height 63 in May, BMI 38.61 kg/m2 May, Heart Rate 101 /min May, Respiratory Rate 18 /min May, Temperature 97.8 degrees Fahrenheit May, Oximetry 100% May, Blood pressure systolic 118 mm Hg May, Blood pressure diastolic 74 mm Hg May, MEDICATIONS No Known Medications PROCEDURES No Information RESULTS No Results REASON FOR VISIT transfer Dr Arguello MEDICAL (GENERAL) HISTORY Type Description Date Medical History mood disorder Medical History drug and alcohol addiction Medical History depresion Surgical History No know Surgical history Hospitalization History Depression - suicidal ideations 02/11 015 Hospitalization History Depression - suicidal ideation 2013 Hospitalization History Depression - suicide attempt 2010 Goals Section No Information Health Concerns No Information MEDICAL EQUIPMENT No Information MENTAL STATUS No Information FUNCTIONAL STATUS No Information ASSESSMENTS Encounter Date Diagnosis Assessment Notes Treatment Notes Treatm ent Clinical Notes May, Weight gain (ICD-10 - R63.5) obtain labs to risk stratify May, Nicotine use disorder (ICD-10 - F17.200) advised to quit smoking May, Screening for diabetes mellitus (ICD-10 - Z13.1) obtain labs May, Screening for lipid disorders (ICD-10 - Z13.220) obtain labs May, Vitamin D deficiency (ICD-10 - E55.9) obtainlabs PLAN OF TREATMENT Treatment Notes Assessment Notes Clinical Notes Weight gain obtain labs to risk stratify Nicotine use disorder advised to quit sm oking Screening for diabetes mellitus obtain l abs Screening for lipid disorders obtain lab s Vitamin D deficiency obtainlabs Future Test Test Name Order Date FREE T4 & TSH PANEL [id number] CBC with Differential [id number] Comprehensive Metabolic Profile (CMP) [id number] HEMOGLOBIN A1c [id number] LIPID PANEL (CARDIAC RISK) [id number] VITAMIN D 25-HYDROXY [id number] Next Appt Details 6 Months Reason: Insurance Providers Payer Name Payer Address Payer Phone Insured Name Patient Relati onship to Insured Coverage Start Date Coverage End Date REPLACED BY [facility] [address] [facility] [address] KELLY HENDRICKS self
--- OUTSIDE RECORDS SUMMARY | 2021-07-21 17:17 | CCD | Continuity of Care Document ---
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 Name Role Phone [facility] [place] [employer] [phone] Problems Description No Information Available Social History Type Date Description Comments Sex Unknown ETOH Use Occasionally consumes alcohol Tobacco Use Start: Unknown Patient is a current smoker, smo kes every day Tobacco Use Start: Unknown The Patient Has Never Vaped Smoking Status Reviewed: 06/22/21 The Patient Has Never Vaped Allergies, Adverse Reactions, Alerts Description No Known Drug Allergies Medications Active Medications SIG Qnty Indications Ordering Provide r Date Ondansetron 4mg Tablets Dispers dissolve 1 tablet in mouth every 8 hours as needed for nausea and vomiting 10tabs A08.4 Chidi Guerrero JR., M.D. 06/22/2021 Nexium 24HR Unknown History Medications No Active Medications Unknown 07/2021 - 06/22/2021 Immunizations Description No Information Available Vital Signs Date Vital Result Comment 06/22/2021 5:46pm BP Systolic 138 mmHg BP Diastolic 94 mmHg Heart Rate 111 /min Respiratory Rate 15 /min O2 % BldC Oximetry 99 % Body Temperature 97.8 F Weight 200.00 lb Height 64 inches 5'4" BMI (Body Mass Index) 34.3 kg/m2 Pain Level 6 08/22/2020 2:19pm BP Systolic 117 mmHg BP Diastolic 83 mmHg Heart Rate 91 /min Respiratory Rate 16 /min O2 % BldC Oximetry 99 % Body Temperature 98.3 F Weight 180.00 lb Pain Level 2 Results Description No Information Available Procedures Date Code Description Status 06/22/2021 00328 Office/Outpatient Established Lo w MDM 20-29 Min Completed Medical Devices Description No Information Available Encounters Type Date Location Provider Dx Diagnosis Office Visit 06/22/2021 1:35p Main Office [facility] A08.4 Viral intestinal infection, unspecified Z20.828 Contact w and exposure to ot h viral communicable diseases Assessments Date Code Description Provider 06/22/2021 A08.4 Viral intestinal infection, unsp ecified [facility] 06/22/2021 Z20.828 Contact with and (lee spected) exposure to other viral communicable diseases [facility] Plan of Treatment No Information Available Functional Status Description No Information Available Mental Status Description No Information Available Referrals Description No Information Available
--- OUTSIDE RECORDS SUMMARY | 2021-07-21 17:17 | CCD | Continuity of Care Document ---
Author Author [facility] [place] Organization Unknown Address [facility] [place] [address] Phone [phone] Care Team Providers Care Microphone Boom Operator Name Role Phone [facility] [phone] [place] [employer] [phone] Problems Description No Information Available Social History [...] Available Procedures Date Code Description Status 06/22/2021 49751 Office/Outpatient Established Lo w MDM 20-29 Min [...]
--- OUTSIDE RECORDS SUMMARY | 2021-07-21 17:17 | CCD | Continuity of Care Document ---
Author Author [facility] [place] Organization Unknown Address [facility] [place] [address] Phone [phone] Care Team Providers Care Senior Loan Officer Name Role Phone [facility] [place] [employer] [phone] Problems Description No Information Available Social History [...] Available Procedures Date Code Description Status 06/22/2021 68065 Office/Outpatient Established Lo w MDM 20-29 Min [...]
--- OUTSIDE RECORDS SUMMARY | 2021-07-21 17:17 | CCD | Continuity of Care Document ---
Author Author [facility] [place] Organization Unknown Address [facility] [place] [address] Phone [phone] Care Team Providers Care Aircraft Engine Dismantler Name Role Phone [facility] [phone] [place] [employer] [phone] Problems Description No Information Available Social History [...] Available Procedures Date Code Description Status 06/22/2021 83185 Office/Outpatient Established Lo w MDM 20-29 Min [...]
--- OUTSIDE RECORDS SUMMARY | 2021-07-21 17:17 | CCD ---
Author Author [facility] Organization [facility] Address Unknown Phone Unavailable Care Team Providers Care Director Of Head Start Name Role Phone ODILIA, Familia ELLIOTT Unavailable Unavailable LETTIERE, Familia ELLIOTT Unavailable Unavailable LETTIERE, Familia ELLIOTT Unavailable Unavailable LETTIERE, Familia ELLIOTT Unavailable Unavailable LETTIERE, Familia ELLIOTT Unavailable Unavailable LETTIERE, Familia ELLIOTT Unavailable Unavailable LETTIERE, Familia ELLIOTT Unavailable Unavailable LETTIERE, Familia ELLIOTT Unavailable Unavailable LETTIERE, Familia ELLIOTT Unavailable Unavailable LETTIERE, Familia ELLIOTT Unavailable Unavailable LETTIERE, Familia ELLIOTT Unavailable Unavailable LETTIERE, Familia ELLIOTT Unavailable Unavailable LETTIERE, Familia ELLIOTT Unavailable Unavailable LETTIERE, Familia ELLIOTT Unavailable Unavailable LETTIERE, Familia ELLIOTT Unavailable Unavailable LETTIERE, Familia ELLIOTT Unavailable Unavailable LETTIERE, Familia ELLIOTT Unavailable Unavailable LETTIERE, Familia ELLIOTT Unavailable Unavailable LETTIERE, Familia ELLIOTT Unavailable Unavailable LETTIERE, Familia ELLIOTT Unavailable Unavailable LETTIERE, Familia ELLIOTT Unavailable Unavailable LETTIERE, Familia ELLIOTT Unavailable Unavailable LETTIERE, A TRACE PA Unavailable Unavailable LETTIERE, A TRACE PA Unavailable Unavailable LETTIERE, A TRACE PA Unavailable Unavailable LETTIERE, A TRACE PA Unavailable Unavailable LETTIERE, A TRACE PA Unavailable Unavailable LETTIERE, A TRACE PA Unavailable Unavailable LETTIERE, A TRACE PA Unavailable Unavailable LETTIERE, A TRACE PA Unavailable Unavailable LETTIERE, A TRACE PA Unavailable Unavailable LAROCK, J MARCELO VEGETABLE FARM MANAGER Unavailable Unavailable LAROCK, J MARCELO VEGETABLE FARM MANAGER Unavailable Unavailable LAROCK, J MARCELO VEGETABLE FARM MANAGER Unavailable Unavailable LAROCK, J MARCELO VEGETABLE FARM MANAGER Unavailable Unavailable LAROCK, J MARCELO VEGETABLE FARM MANAGER Unavailable Unavailable LAROCK, J MARCELO VEGETABLE FARM MANAGER Unavailable Unavailable LAROCK, J MARCELO VEGETABLE FARM MANAGER Unavailable Unavailable LAROCK, J MARCELO VEGETABLE FARM MANAGER Unavailable Unavailable LAROCK, J MARCELO VEGETABLE FARM MANAGER Unavailable Unavailable LAROCK, J MARCELO VEGETABLE FARM MANAGER Unavailable Unavailable LAROCK, J MARCELO VEGETABLE FARM MANAGER Unavailable Unavailable LAROCK, J MARCELO VEGETABLE FARM MANAGER Unavailable Unavailable LAROCK, J MARCELO VEGETABLE FARM MANAGER Unavailable Unavailable LAROCK, J MARCELO VEGETABLE FARM MANAGER Unavailable Unavailable LAROCK, J MARCELO VEGETABLE FARM MANAGER Unavailable Unavailable LAROCK, J MARCELO VEGETABLE FARM MANAGER Unavailable Unavailable LAROCK, J MARCELO VEGETABLE FARM MANAGER Unavailable Unavailable LAROCK, J MARCELO VEGETABLE FARM MANAGER Unavailable Unavailable LAROCK, J MARCELO VEGETABLE FARM MANAGER Unavailable Unavailable LAROCK, J MARCELO VEGETABLE FARM MANAGER Unavailable Unavailable LAROCK, J MARCELO VEGETABLE FARM MANAGER Unavailable Unavailable LAROCK, J MARCELO VEGETABLE FARM MANAGER Unavailable Unavailable Campanaro, Mare Jannet PA Unavailable Unavailable Campanaro, Mare Jannet PA Unavailable Unavailable Campanaro, Mare Jannet PA Unavailable Unavailable Campanaro, Mare Jannet PA Unavailable Unavailable Campanaro, Mare Jannet PA Unavailable Unavailable Campanaro, Mare Jannet PA Unavailable Unavailable Campanaro, Mare Jannet PA Unavailable Unavailable Campanaro, Mare Jannet PA Unavailable Unavailable Campanaro, Mare Jannet PA Unavailable Unavailable Campanaro, Mare Jannet PA Unavailable Unavailable Campanaro, Mare Jannet PA Unavailable Unavailable Campanaro, Mare Jannet PA Unavailable Unavailable Campanaro, Mare Jannet PA Unavailable Unavailable Campanaro, Mare Jannet PA Unavailable Unavailable Campanaro, Mare Jannet PA Unavailable Unavailable Campanaro, Mare Jannet PA Unavailable Unavailable Campanaro, Mare Jannet PA Unavailable Unavailable RING, K JOHN PA Unavailable Unavailable RING, K JOHN PA Unavailable Unavailable RING, K JOHN PA Unavailable Unavailable RING, K JOHN PA Unavailable Unavailable RING, K JOHN PA Unavailable Unavailable RING, K JOHN PA Unavailable Unavailable RING, K JOHN PA Unavailable Unavailable RING, K JOHN PA Unavailable Unavailable RING, K JOHN PA Unavailable Unavailable RING, K JOHN PA Unavailable Unavailable RING, K JOHN PA Unavailable Unavailable RING, K JOHN PA Unavailable Unavailable RING, K JOHN PA Unavailable Unavailable RING, K JOHN PA Unavailable Unavailable RING, K JOHN PA Unavailable Unavailable RING, K JOHN PA Unavailable Unavailable RING, K JOHN PA Unavailable Unavailable RING, K JOHN PA Unavailable Unavailable RING, K JOHN PA Unavailable Unavailable RING, K JOHN PA Unavailable Unavailable RING, K JOHN PA Unavailable Unavailable Re-disclosure Warning The records that you are about to access may contain information from federally-assisted alcohol or drug abuse programs. If such information is present, then the following federally mandated warning applies: This information has been disclosed to you from records protected by federal confidentiality rules (42 CFR part 2). The federal rules prohibit you from making any further disclosure of this information unless further disclosure is expressly permitted by the written consent of the person to whom it pertains or as otherwise permitted by 42 CFR part 2. A general authorization for the release of medical or other information is NOT sufficient for this purpose. The Federal rules restrict any use of the information to criminally investigate or prosecute any alcohol or drug abuse patient.The records that you are about to access may contain highly sensitive health information, the redisclosure of which is protected by Article 27-F of the [facility] Public Health law. If you continue you may have access to information: Regarding HIV / AIDS; Provided by facilities licensed or operated by the [facility] Office of Mental Health; or Provided by the [facility] Office for People With Developmental Disabilities. If such information is present, then the following [facility] mandated warning applies: This information has been disclosed to you from confidential records which are protected by state law. State law prohibits you from making any further disclosure of this information without the specific written consent of the person to whom it pertains, or as otherwise permitted by law. Any unauthorized further disclosure in violation of state law may result in a fine or penitentiary sentence or both. A general authorization for the release of medical or other information is NOT sufficient authorization for further disc losure. Encounters Encounter Providers Location Date Indications Data Source(s ) Outpatient Attender: MARCELO STARR NP 06/13 09:47:35 AM EDT - 07/09/2021 10:36:14 AM EDT [facility] ([facility] ) Unknown [address] [address] 07/09/2021 12:00:00 AM EDT eCW1 ([facility]) Outpatient Attender: JOHN Bedoya Primary 06/22/2021 01:35:00 PM EDT [facility] ([facility]) Outpatient [address] [facility] [address] 05/20/2021 12:00:00 AM EDT eCW1 ([facility]) Outpatient Attender: TRACE Bedoya Prim clarke 08/22/2020 02:20:00 PM EST [facility] ([facility]) Outpatient Attender: Jannet Bedoya Prim clarke 08/11/2020 02:15:00 PM EST MED[facility] ([facility]) Immunizations Vaccine Date Status Description Data Source(s) COVID-19 VACCINE Moderna 03/02/2021 12:00:00 AM EDT completed [facility] Vaccine Series Complete: NOThis Data was Submitted to [facility] Via [employer]. COVID-19 VACCINE Pura 02/04/2021 12:00:00 AM EDT completed [facility] Vaccine Series Complete: YESThis Data wa s Submitted to [facility] [employer]. COVID-19 VACCINE Moderna 02/02/2021 12:00:00 AM EDT completed [facility] Vaccine Series Complete: YESThis Data wa s Submitted to [facility] [employer]. Medications Medication Brand Name Start Date Product Form Dose Route Admi nistrative Instructions Pharmacy Instructions Status Indications Reaction Description Data Source(s) Ondansetron 4 MG Disintegrating Oral Tablet ONDANSETRON 06/23/2021 12:00:00 AM EDT tablet,disintegrating 10 DISSOLVE O NE TABLET ON TONGUE EVERY 8 HOURS NEEDED FOR NAUSEA AND VOMITING DISSOLVE ONE TABLET ON TONGUE EVERY 8 HO URS NEEDED FOR NAUSEA AND VOMITING SOLD: 06/23/2021 [facility] Ondansetron 4 MG Disintegrating Oral Tablet Ondansetron 06/22/2021 12:00:00 AM EDT active [facility] ([facility]) No Active Medications 06/22/2021 12:00:00 AM EDT completed [facility] ([facility]) 20 mg 09/10/2020 12:00:00 AM EST tablet 10 TAKE 2 TABLETS BY MOUTH ONE TIME A DAY FOR 5 DAYS TAKE 2 TABLETS BY MOUTH ONE TIME A DAY FOR 5 DAYS SOLD : 09/10/2020 [facility] 10 mg 09/10/2020 12:00:00 AM EST tablet 30 TAKE ONE TABLET BY MOUTH ONCE A DAY TAKE ONE TABLET BY MOUTH ONCE A DAY SOLD: 09/10/2020 [facility] 0.1 % 09/10/2020 12:00:00 AM EST cream 15 APPLY TOPICALLY TO RASH ON TRUNK AND EXTREMITIES TWO TIMES A DAY NEEDED FOR ITCHING FOR 10 DAYS APPLY TOPICALLY TO RASH ON TRUNK AND EXTREMITIES TWO TIMES A DAY NEEDED FOR ITCHING FOR 10 DAYS SOLD: 09/10/2020 [facility] Sulfamethoxazole 800 MG / Trimethoprim 160 MG Oral Tab let 800-160 mg SULFAMETHOXAZOLE/TRIMETHOPRIM 09/10/2020 12:00:00 AM EST tablet 20 TAKE ONE TABLET BY MOUTH TWO TIMES A DAY FOR 10 DAYS TAKE ONE TABLET BY MOUTH TWO TIMES A DAY FOR 10 DAYS SOLD: 09/10/2020 [facility] 150 mg 08/22/2020 12:00:00 AM EST tablet 2 TAKE ONE TABLET BY MOUTH ONCE, REPEAT IN ONE WEEK NEEDED TAKE ONE TABLET BY MOUTH ONCE, REPEAT IN ONE WEEK NEEDED SOLD: 08/22/2020 [facility] Fluconazole 150 MG Oral Tablet Fluconazole 08/22/2020 12:00:00 AM EST ORAL active [facility] ([facility]) 875-125 mg 08/13/2020 12:00:00 AM EST tablet 20 TAKE ONE TABLET BY MOUTH TWICE A DAY FOR 10 DAYS TAKE ONE TABLET BY MOUTH TWICE A DAY FOR 10 DAYS SOLD: 08/13/2020 [facility] No Active Medications 08/11/2020 12:00:00 AM EST completed MEDENT ([facility]) Insurance Providers Payer name Policy type / Coverage type Policy ID Covered alliance party ID Covered alliance party's relationship to ferrari Policy Ferrari Plan Information Medicaid Medicaid [id number] Self [id number] [employer]. [id number] Self [id number] [facility] [id number] SP [id number] [facility] [id number] SP [id number] MEDICAID [id number] SP [id number] SELF PAY ONLY [id number] SP [id number] [facility] [id number] SP [id number] ANSI-Medicaid [id number] ANSI-Medicaid [id number] [facility] [id number] SP [id number] [facility] [id number] SP [id number] [facility] [id number] SP [id number] [facility] [id number] SP [id number] MEDICAID [id number] S [id number] SELF PAY ONLY NONE SP NONE SELF PAY UNAVAILABLE SP UNAVAILA BLE Problems, Conditions, and Diagnoses Code Display Name Description Problem Type Effective Dates Data Source(s) E55.9 91190323 Vitamin D deficiency Problem 05/20/2021 12:0 0:00 AM EDT eCW1 ([facility]) F17.200 46413182 Nicotine use disorder Problem 05/20/2021 12: 00:00 AM EDT eC1 ([facility]) Surgeries/Procedures Procedure Description Date Indications Data Source(s) OFFICE OUTPATIENT VISIT 15 MINUTES 06/22/2021 12:00:00 AM EDT [facility] ([facility], [facility]) Results ID Date Data Source [id number] 07/09/2021 10:00:00 AM EDT [facility] Name Value Range Interpretation Code Description Data Cathy rce(s) Supporting Document(s) SARS-CoV-2 RNA Resp Ql KIRAN+probe NOT DETECTED [facility] This lab was ordered by JESENIA trejo and reported by JESENIA Shrestha. ID Date Data Source [id number] 06/22/2021 12:00:00 AM EDT [facility] Name Value Range Interpretation Code Description Data Cathy rce(s) Supporting Document(s) SARS-CoV2 Rapid Antigen Negative [facility] This lab was ordered by [facility] and reported by [facility]. ID Date Data Source [id number] 08/22/2020 12:00:00 AM EST [facility] Name Value Range Interpretation Code Description Data Cathy rce(s) Supporting Document(s) SARS coronavirus 2 Ag [facility] This lab was ordered by [facility] and reported by [facility]. ID Date Data Source [id number] 08/10/2020 12:00:00 AM EST [facility] Name Value Range Interpretation Code Description Data Cathy rce(s) Supporting Document(s) SARS coronavirus 2 RNA [Presence] in Res piratory specimen by KIRAN with probe detection [facility] This lab was ordered by [facility] and reported by [facility]. Procedure Social History Code Duration Value Status Description Data Source(s ) Smoking 05/20/2021 12:00:00 AM EDT Current Smoker completed Curre nt Smoker eCW1 ([facility]) Smoking 05/20/2021 12:00:00 AM EDT Current Smoker completed Curre nt Smoker eCW1 ([facility]) Vital Signs ID Date Data Source UNK Name Value Range Interpretation Code Description Data Source(s) Heart rate 111 /min 111 /min [facility] Systolic blood pressure 138 mm[Hg] 138 mm[Hg] [facility] Diastolic blood pressure 94 mm[Hg] 94 mm[Hg] [facility] Body weight 200.00 [lb_av] 200.00 [lb_av] MEDEN T ([facility]) Body mass index (BMI) [Ratio] 34.3 kg/m2 34.3 k g/m2 [facility] ([facility]) Body height 64 [in_i] 64 [in_i] [facility] 5'4" Respiratory rate 15 /min 15 /min [facility] ( [facility]) Oxygen saturation in Arterial blood by Pulse oximetry 99 % 99 % [facility] ([facility], [facility]) Body temperature 97.8 [degF] 97.8 [degF] [facility] ([facility], [facility]) Heart rate 101 /min 101 /min eCW1 ([facility] includes the [facility]) Respiratory rate 18 /min 18 /min eCW1 ([facility]) Body temperature 97.8 [degF] 97.8 [degF] eCW1 ( [facility]) Systolic blood pressure 118 mm[Hg] 118 mm[Hg] e CW1 ([facility]) Diastolic blood pressure 74 mm[Hg] 74 mm[Hg] eCW1 ([facility]) Body weight 218 [lb_av] 218 [lb_av] eCW1 ([facility]) Body weight 98.88 kg 98.88 kg W1 ([facility]) Body height 63 [in_i] 63 [in_i] eCW1 ([facility]) Body mass index (BMI) [Ratio] 38.61 kg/m2 38.61 kg/m2 [facility] ([facility]) Body temperature 98.3 [degF] 98.3 [degF] [facility] ([facility], [facility]) Heart rate 91 /min 91 /min MED[facility] ([facility], [facility]) Respiratory rate 16 /min 16 /min [facility] ( [facility], [facility]) Oxygen saturation in Arterial blood by Pulse oximetry 99 % 99 % MED[facility] ([facility], [facility]) Body weight 180.00 [lb_av] 180.00 [lb_av] MEDEN T ([facility], [facility]) Systolic blood pressure 117 mm[Hg] 117 mm[Hg] M EDENT ([facility], [facility]) Diastolic blood pressure 83 mm[Hg] 83 mm[Hg] MEDENT ([facility], [facility]) Systolic blood pressure 108 mm[Hg] 108 mm[Hg] M EDENT ([facility], [facility]) Body height 63 [in_i] 63 [in_i] MEDENT ([facility], [facility]) 5'3" Body mass index (BMI) [Ratio] 31.9 kg/m2 31.9 k g/m2 [facility] ([facility]) Diastolic blood pressure 64 mm[Hg] 64 mm[Hg] [facility] ([facility]) Heart rate 102 /min 102 /min [facility] ([facility]) Respiratory rate 14 /min 14 /min [facility] ( [facility]) Oxygen saturation in Arterial blood by Pulse oximetry 98 % 98 % [facility] ([facility]) Body temperature 98.4 [degF] 98.4 [degF] [facility] ([facility]) Body weight 180.00 [lb_av] 180.00 [facility]_av] [facility])
--- OUTSIDE RECORDS SUMMARY | 2021-07-21 17:17 | CCD ---
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 Active confirmed 0348497 Problem 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 Active confirmed 561707491 Problem Irregular bleeding N92.6 Active confirmed 8 9756999 ALLERGIES No Known Allergies ENCOUNTERS from 1985 to 2021-07-10 Encounter Location Date Provider Diagnosis [address] [phone] [place] [address] Jun, Romi Berg IMMUNIZATIONS No Information SOCIAL HISTORY Tobacco Use: Social History Observation Description Date Details (start date - stop date) Current Smoker Sex Assigned At : Social History Observation Description Sex Assigned At Unknown Education: Question Answer Notes Level of Education: Finished High School Language: Question Answer Notes Languages spoken: Wolof Confucianism: Question Answer Notes Confucianism 08 Oriental Orthodox Sexual Hx: Question Answer Notes Had sex [...] REASON FOR REFERRAL No Information VITAL SIGNS No information MEDICATIONS No Information PROCEDURES No Information RESULTS No Results REASON FOR VISIT bloodwork results MEDICAL (GENERAL) HISTORY Type Description Date Medical [...] No Information FUNCTIONAL STATUS No Information ASSESSMENTS No Information PLAN OF TREATMENT Next Appt Details Provider Name:Romi Sellerssofi, 2021-0 10-21 11:30:00 AM, [address] [facility], , [place], [address], Insurance Providers Payer Name Payer Address Payer Phone Insured Name Patient Relati onship to Insured Coverage Start Date Coverage End Date FOR[facility]LY [facility] PLAN [facility] [address] [facility] [address] KELLY HENDRICKS self
--- OUTSIDE RECORDS SUMMARY | 2021-07-21 18:14 | CCD | Continuity of Care Document ---
Author Author [facility]iana FU[place] [place] Organization Unknown Address [facility] [place] [address] Phone [phone] Care Team Providers Care Ice Hockey Coach Name Role Phone [facility] [place] [facility] [phone] Problems Description No Information Available Social History [...] Available Procedures Date Code Description Status 06/22/2021 17101 Office/Outpatient Established Lo w MDM 20-29 Min [...]
--- OUTSIDE RECORDS SUMMARY | 2021-07-21 18:15 | CCD ---
Author Author [facility] Organization [facility] Address Unknown Phone Unavailable Care Team Providers Care Computer Applications Engineer Name Role Phone ODILIA, Familia ELLIOTT Unavailable [...] TRACE PA Unavailable Unavailable LAROCK, J MARCELO PARKING LOT MANAGER Unavailable Unavailable LAROCK, J MARCELO PARKING LOT MANAGER Unavailable Unavailable LAROCK, J MARCELO PARKING LOT MANAGER Unavailable Unavailable LAROCK, J MARCELO PARKING LOT MANAGER Unavailable Unavailable LAROCK, J MARCELO PARKING LOT MANAGER Unavailable Unavailable LAROCK, J MARCELO PARKING LOT MANAGER Unavailable Unavailable LAROCK, J MARCELO PARKING LOT MANAGER Unavailable Unavailable LAROCK, J MARCELO PARKING LOT MANAGER Unavailable Unavailable LAROCK, J MARCELO PARKING LOT MANAGER Unavailable Unavailable LAROCK, J MARCELO PARKING LOT MANAGER Unavailable Unavailable LAROCK, J MARCELO PARKING LOT MANAGER Unavailable Unavailable LAROCK, J MARCELO PARKING LOT MANAGER Unavailable Unavailable LAROCK, J MARCELO PARKING LOT MANAGER Unavailable Unavailable LAROCK, J MARCELO PARKING LOT MANAGER Unavailable Unavailable LAROCK, J MARCELO PARKING LOT MANAGER Unavailable Unavailable LAROCK, J MARCELO PARKING LOT MANAGER Unavailable Unavailable LAROCK, J MARCELO PARKING LOT MANAGER Unavailable Unavailable LAROCK, J MARCELO PARKING LOT MANAGER Unavailable Unavailable LAROCK, J MARCELO PARKING LOT MANAGER Unavailable Unavailable LAROCK, J MARCELO PARKING LOT MANAGER Unavailable Unavailable LAROCK, J MARCELO PARKING LOT MANAGER Unavailable Unavailable LAROCK, J MARCELO PARKING LOT MANAGER Unavailable Unavailable Campanaro, Mare Jannet PA [...] is protected by Article 27-F of the [facility] Public Health law. If you continue you may have access to information: Regarding HIV / AIDS; Provided by facilities licensed or operated by the [facility] Office of Mental Health; or Provided by the [facility] Office for People With Developmental Disabilities. If such information is present, then the following [facility] mandated warning applies: This information has been [...] law may result in a fine or intermediate sentence or both. A general authorization for the release of medical or other information is NOT sufficient authorization for further disc losure. Encounters Encounter Providers Location Date Indications Data Source(s ) Outpatient Attender: MARCELO STARR NP 06/13 09:47:35 AM EDT - 07/09/2021 10:36:14 AM EDT [facility] ([facility] ) Unknown [address] [address] [place] [address] 07/09/2021 12:00:00 AM EDT eCW1 ([facility]) Outpatient Attender: JOHN Bedoya Primary 06/22/2021 01:35:00 PM EDT [facility] ([facility]) Outpatient [address] [facility] [place] [address] 05/20/2021 12:00:00 AM EDT eCW1 ([facility]) Outpatient Attender: TRACE Bedoya Prim clarke 08/22/2020 02:20:00 PM EST [facility] ([facility]) Outpatient Attender: Jannet Bedoya Prim clarke 08/11/2020 02:15:00 PM EST [facility] ([facility]) Immunizations Vaccine Date Status Description Data Source(s) COVID-19 VACCINE Moderna 03/02/2021 12:00:00 AM EDT completed [facility] Vaccine Series Complete: NOThis Data was Submitted to [facility]. COVID-19 VACCINE Pura 02/04/2021 12:00:00 AM EDT completed [facility] Vaccine Series Complete: YESThis Data wa s Submitted to [facility]. COVID-19 VACCINE Moderna 02/02/2021 12:00:00 AM EDT completed [facility] Vaccine Series Complete: YESThis Data wa s Submitted to [facility]. Medications Medication Brand Name Start Date Product [...] NEEDED FOR NAUSEA AND VOMITING SOLD: 06/23/2021 [facility] Ondansetron 4 MG Disintegrating Oral Tablet Ondansetron 06/22/2021 12:00:00 AM EDT active [facility] ([facility], [facility]) No Active Medications 06/22/2021 12:00:00 AM EDT completed [facility] ([facility]) 20 mg 09/10/2020 12:00:00 AM [...] 08/22/2020 12:00:00 AM EST ORAL active [facility] ([facility], [facility]) 875-125 mg 08/13/2020 12:00:00 AM EST tablet 20 TAKE ONE TABLET BY MOUTH TWICE A DAY FOR 10 DAYS TAKE ONE TABLET BY MOUTH TWICE A DAY FOR 10 DAYS SOLD: 08/13/2020 [facility] No Active Medications 08/11/2020 12:00:00 AM EST completed [facility] ([facility]) Insurance Providers Payer name Policy type / Coverage type Policy ID Covered constitution party ID Covered constitution party's relationship to ferrari Policy Ferrari Plan Information Medicaid Medicaid [id number] Self [id number]. [id number] Self [id number] [facility] [employer] [id number] SP [id number] [employer] [id number] SP [id number] MEDICAID [id number] SP [id number] SELF PAY ONLY [id number] SP [id number] [facility] [id number] SP [id number] ANSI-Medicaid [id number] ANSI-Medicaid [id number] [facility] [id number] SP [id number] [facility] [id number] SP [id number] [facility] [id number] SP [id number] [facility] [id number] SP [id number] MEDICAID [id number] S [id number] SELF PAY ONLY NONE SP NONE SELF PAY UNAVAILABLE SP UNAVAILA BLE Problems, Conditions, and Diagnoses Code Display Name Description Problem Type Effective Dates Data Source(s) E55.9 [id number] Vitamin D deficiency Problem 05/20/2021 12:0 0:00 AM EDT eCW1 ([facility]) F17.200 [id number] Nicotine use disorder Problem 05/20/2021 12: 00:00 AM EDT eC1 ([facility]) Surgeries/Procedures Procedure Description Date Indications Data Source(s) OFFICE OUTPATIENT VISIT 15 MINUTES 06/22/2021 12:00:00 AM EDT [facility] ([facility], [facility]) Results ID Date Data Source [id number] 07/09/2021 10:00:00 AM EDT [facility] Name Value Range Interpretation Code Description Data Cathy rce(s) Supporting Document(s) SARS-CoV-2 RNA Resp Ql KIRAN+probe NOT DETECTED [facility] This lab was ordered by JESENIA trejo and reported by JESENIA Shrestha. ID Date Data Source [id number] 06/22/2021 12:00:00 AM EDT [facility] Name Value Range Interpretation Code Description Data Cathy rce(s) Supporting Document(s) SARS-CoV2 Rapid Antigen Negative [facility] This lab was ordered by [facility] and reported by [facility]. ID Date Data Source [id number] 08/22/2020 12:00:00 AM EST [facility] Name Value Range Interpretation Code Description Data Cathy rce(s) Supporting Document(s) SARS coronavirus 2 Ag [facility] This lab was ordered by [facility] and reported by [facility]. ID Date Data Source [id number] 08/10/2020 12:00:00 AM EST [facility] Name Value Range Interpretation Code Description Data Cathy rce(s) Supporting Document(s) SARS coronavirus 2 RNA [Presence] in Res piratory specimen by KIRAN with probe detection [facility] This lab was ordered by [facility] and reported by [facility]. Procedure Social History Code Duration Value Status Description Data Source(s ) Smoking 05/20/2021 12:00:00 AM EDT Current Smoker completed Curre nt Smoker eCW1 ([facility]) Smoking 05/20/2021 12:00:00 AM EDT Current Smoker completed Curre nt Smoker eCW1 ([facility]) Vital Signs ID Date Data Source UNK Name Value Range Interpretation Code Description Data Source(s) Systolic blood pressure 138 mm[Hg] 138 mm[Hg] M EDENT ([facility]) Diastolic blood pressure 94 mm[Hg] 94 mm[Hg] [facility] ([facility]) Heart rate 111 /min 111 /min [facility] Body weight 200.00 [lb_av] 200.00 [lb_av] MEDEN T ([facility]) Body height 64 [in_i] 64 [in_i] [facility] ([facility] 5'4" Body mass index (BMI) [Ratio] 34.3 kg/m2 34.3 k g/m2 [facility] ([facility]) Respiratory rate 15 /min 15 /min [facility] ( [facility]) Oxygen saturation in Arterial blood by Pulse oximetry 99 % 99 % [facility] ([facility], [facility]) Body temperature 97.8 [degF] 97.8 [degF] [facility] ([facility], [facility]) Body weight 218 [lb_av] 218 [lb_av] eCW1 ([facility]) Body weight 98.88 kg 98.88 kg eCW1 ([facility]) Body height 63 [in_i] 63 [in_i] eCW1 ([facility]) Body mass index (BMI) [Ratio] 38.61 kg/m2 38.61 kg/m2 eCW1 ([facility]) Heart rate 101 /min 101 /min eCW1 ([facility]) Respiratory rate 18 /min 18 /min eCW1 ([facility]) Body temperature 97.8 [degF] 97.8 [degF] eCW1 ( [facility]) Systolic blood pressure 118 mm[Hg] 118 mm[Hg] e CW1 ([facility]) Diastolic blood pressure 74 mm[Hg] 74 mm[Hg] eCW1 ([facility]) Body temperature 98.3 [degF] 98.3 [degF] [facility] ([facility], [facility]) Systolic blood pressure 117 mm[Hg] 117 mm[Hg] M EDENT ([facility], [facility]) Diastolic blood pressure 83 mm[Hg] 83 mm[Hg] [facility] ([facility], [facility]) Heart rate 91 /min 91 /min MED[facility] ([facility], [facility]) Respiratory rate 16 /min 16 /min [facility] ( [facility], [facility]) Oxygen saturation in Arterial blood by Pulse oximetry 99 % 99 % [facility] ([facility], [facility]) Body weight 180.00 [lb_av] 180.00 [lb_av] MEDEN T ([facility], [facility]) Systolic blood pressure 108 mm[Hg] 108 mm[Hg] M EDENT ([facility], [facility]) Diastolic blood pressure 64 mm[Hg] 64 mm[Hg] MED[facility] ([facility], [facility]) Heart rate 102 /min 102 /min [facility] ([facility], [facility]) Respiratory rate 14 /min 14 /min [facility] ( [facility], [facility]) Oxygen saturation in Arterial blood by Pulse oximetry 98 % 98 % [facility] ([facility], [facility]) Body temperature 98.4 [degF] 98.4 [degF] [facility] ([facility], [facility]) Body weight 180.00 [lb_av] 180.00 [lb_av] MEDEN T ([facility], [facility]) Body height 63 [in_i] 63 [in_i] [facility] ([facility]) 5'3" Body mass index (BMI) [Ratio] 31.9 kg/m2 31.9 k g/m2 [facility] ([facility])
== END 2021-07-21 17:26 | disposition left against medical advice (07) ==
LOC: M ED 17:08
DX: Z53.21 Procedure and treatment not carried out due to patient leaving prior to being seen by health care provider (principal)

== ENCOUNTER → 2022-03-04 | Outpatient (REF) | payer OTHER ==
[2022-03-04 16:44] LABS: BASO # 0.1 10^3/uL (0.0-0.2); BASO % 0.5 % (0.0-1.0); EOS # 0.1 10^3/uL (0.0-0.5); EOS % 0.6 % (0.0-3.0); HEMATOCRIT 39.7 % (36.0-47.0); HEMOGLOBIN 12.5 g/dl (12.0-15.5); LYMPH # 1.7 10^3/uL (1.5-5.0); LYMPH % 16.9 % (24.0-44.0); MEAN CORPUSCULAR HEMOGLOBIN 26.8 pg (27.0-33.0); MEAN CORPUSCULAR HGB CONC 31.5 g/dl (32.0-36.5); MONO # 0.6 10^3/uL (0.0-0.8); MONO % 5.4 % (2.0-8.0); NEUTROPHILS # 7.8 10^3/uL (1.5-8.5); NEUTROPHILS % 76.2 % (36.0-66.0); PLATELET COUNT, AUTOMATED 488 10^3/uL (150-450); RED BLOOD COUNT 4.67 10^6/uL (4.00-5.40); WHITE BLOOD COUNT 10.2 10^3/uL (4.0-10.0)
[2022-03-04 16:52] LABS: MONO REFLEX EBV VCA IgM NEGATIVE (NEGATIVE)
[2022-03-04 17:06] LABS: ALBUMIN 3.4 GM/DL (3.2-5.2); ALT/SGPT 45 U/L (12-78); BILIRUBIN,TOTAL 0.4 MG/DL (0.2-1.0); BLOOD UREA NITROGEN 6 MG/DL (7-18); CALCIUM LEVEL 8.8 MG/DL (8.5-10.1); CARBON DIOXIDE LEVEL 24 MEQ/L (21-32); CHLORIDE LEVEL 105 MEQ/L (98-107); CREATININE FOR GFR 0.81 MG/DL (0.55-1.30); FREE T4 0.79 NG/DL (0.76-1.46); GLOMERULAR FILTRATION RATE > 60.0 (>60); GLUCOSE, FASTING 98 MG/DL (70-100); POTASSIUM SERUM 4.2 MEQ/L (3.5-5.1); SODIUM LEVEL 138 MEQ/L (136-145); TOTAL PROTEIN 7.1 GM/DL (6.4-8.2)
== END ==
LOC: M WUC 15:45
PROVIDERS: ATTEND Physician Assistant
DX: M79.10 Myalgia, unspecified site (principal); J06.9 Acute upper respiratory infection, unspecified

== ENCOUNTER → 2022-06-25 | Outpatient (REF) | payer OTHER | LOC: M LAB REF 16:18 | PROVIDERS: ATTEND Physician Assistant | DX: B34.9 Viral infection, unspecified (principal) ==

== ENCOUNTER → 2023-11-23 | Outpatient (CLI) | payer OTHER, SELFPAY ==
[2023-11-23 12:07] LABS: HEMATOCRIT 40.7 % (36.0-47.0); HEMOGLOBIN 12.4 g/dl (12.0-15.5); MEAN CORPUSCULAR HEMOGLOBIN 25.5 pg (27.0-33.0); MEAN CORPUSCULAR HGB CONC 30.5 g/dl (32.0-36.5); MEAN CORPUSCULAR VOLUME 83.7 fl (80.0-96.0); PLATELET COUNT, AUTOMATED 470 10^3/uL (150-450); RED BLOOD COUNT 4.86 10^6/uL (4.00-5.40); WHITE BLOOD COUNT 7.5 10^3/uL (4.0-10.0)
[2023-11-23 12:31] LABS: LIPASE 30 U/L (12-53)
[2023-11-23 12:32] LABS: AMYLASE 60 U/L (30-118)
[2023-11-23 12:33] LABS: ALBUMIN 3.9 G/DL (3.2-5.2); ALKALINE PHOSPHATASE 80 U/L (46-116); ALT/SGPT 29 U/L (7.0-40); AST/SGOT 21 U/L (<34); BILIRUBIN,TOTAL 0.6 MG/DL (0.3-1.2); BLOOD UREA NITROGEN 12 MG/DL (9-23); CALCIUM LEVEL 8.5 MG/DL (8.5-10.1); CARBON DIOXIDE LEVEL 26 MMOL/L (20-31); CHLORIDE LEVEL 107 MMOL/L (98-107); CHOLESTEROL LEVEL 199 MG/DL (<200); CHOLESTEROL RISK RATIO 3.88 (<5); CREATININE FOR GFR 0.87 MG/DL (0.55-1.30); GLOMERULAR FILTRATION RATE > 60.0 (>60); GLUCOSE, FASTING 94 MG/DL (60-100); HDL CHOLESTEROL 51.2 MG/DL (>40); NON-HDL-C 147.8 MG/DL; POTASSIUM SERUM 4.1 MMOL/L (3.5-5.1); SODIUM LEVEL 139 MMOL/L (136-145); TOTAL PROTEIN 7.1 G/DL (5.7-8.2); TRIGLYCERIDES LEVEL 124 MG/DL (<150)
[2023-11-23 12:53] LABS: HEMOGLOBIN A1c 5.5 % (4.0-6.0)
== END ==
LOC: M WUC 10:14
PROVIDERS: ATTEND Dermatology
DX: E07.9 Disorder of thyroid, unspecified (principal)

== ENCOUNTER → 2024-01-02 | Outpatient (CLI) | payer OTHER ==
[2024-01-02 13:00] LABS: BASO # 0.1 10^3/uL (0.0-0.2); EOS # 0.2 10^3/uL (0.0-0.5); EOS % 1.8 % (0.0-3.0); HEMATOCRIT 44.4 % (36.0-47.0); HEMOGLOBIN 13.4 g/dl (12.0-15.5); LYMPH # 1.1 10^3/uL (1.5-5.0); LYMPH % 12.1 % (24.0-44.0); MEAN CORPUSCULAR HEMOGLOBIN 25.1 pg (27.0-33.0); MEAN CORPUSCULAR HGB CONC 30.2 g/dl (32.0-36.5); MEAN CORPUSCULAR VOLUME 83.3 fl (80.0-96.0); MONO # 0.5 10^3/uL (0.0-0.8); MONO % 5.9 % (2.0-8.0); NEUTROPHILS % 78.9 % (36.0-66.0); PLATELET COUNT, AUTOMATED 463 10^3/uL (150-450); RED BLOOD COUNT 5.33 10^6/uL (4.00-5.40); WHITE BLOOD COUNT 8.8 10^3/uL (4.0-10.0)
[2024-01-02 13:11] LABS: BLOOD UREA NITROGEN 13 MG/DL (9-23); CALCIUM LEVEL 9.1 MG/DL (8.5-10.1); CARBON DIOXIDE LEVEL 25 MMOL/L (20-31); CHLORIDE LEVEL 102 MMOL/L (98-107); CREATININE FOR GFR 0.82 MG/DL (0.55-1.30); GLOMERULAR FILTRATION RATE > 60.0 (>60); GLUCOSE, FASTING 69 MG/DL (60-100); MAGNESIUM LEVEL 1.6 MG/DL (1.8-2.4); POTASSIUM SERUM 4.1 MMOL/L (3.5-5.1); SODIUM LEVEL 137 MMOL/L (136-145)
== END ==
LOC: M PLALAB 09:37
PROVIDERS: ATTEND Nurse Practitioner Family
DX: I10 Essential (primary) hypertension (principal)

== ENCOUNTER → 2024-01-04 | Outpatient (CLI) | payer OTHER ==
[2024-01-04 12:38] LABS: BLOOD UREA NITROGEN 18 MG/DL (9-23); CALCIUM LEVEL 9.8 MG/DL (8.5-10.1); CARBON DIOXIDE LEVEL 30 MMOL/L (20-31); CHLORIDE LEVEL 99 MMOL/L (98-107); CREATININE FOR GFR 0.96 MG/DL (0.55-1.30); GLOMERULAR FILTRATION RATE > 60.0 (>60); GLUCOSE, FASTING 68 MG/DL (60-100); POTASSIUM SERUM 4.4 MMOL/L (3.5-5.1); SODIUM LEVEL 135 MMOL/L (136-145)
== END ==
LOC: M PLAIMG 08:49
PROVIDERS: ATTEND Nurse Practitioner Family
DX: R59.0 Localized enlarged lymph nodes (principal)

== ENCOUNTER → 2024-02-28 | Outpatient (CLI) | payer OTHER ==
[2024-02-28 15:16] LABS: BASO # 0.1 10^3/uL (0.0-0.2); BASO % 0.9 % (0.0-1.0); EOS # 0.1 10^3/uL (0.0-0.5); EOS % 1.1 % (0.0-3.0); HEMATOCRIT 42.5 % (36.0-47.0); HEMOGLOBIN 12.8 g/dl (12.0-15.5); LYMPH # 1.5 10^3/uL (1.5-5.0); LYMPH % 16.4 % (24.0-44.0); MEAN CORPUSCULAR HEMOGLOBIN 24.6 pg (27.0-33.0); MEAN CORPUSCULAR HGB CONC 30.1 g/dl (32.0-36.5); MEAN CORPUSCULAR VOLUME 81.6 fl (80.0-96.0); MONO # 0.5 10^3/uL (0.0-0.8); MONO % 5.9 % (2.0-8.0); NEUTROPHILS # 6.6 10^3/uL (1.5-8.5); NEUTROPHILS % 75.2 % (36.0-66.0); PLATELET COUNT, AUTOMATED 458 10^3/uL (150-450); RED BLOOD COUNT 5.21 10^6/uL (4.00-5.40); WHITE BLOOD COUNT 8.8 10^3/uL (4.0-10.0)
[2024-02-28 15:51] LABS: ALBUMIN 3.5 G/DL (3.2-5.2); BILIRUBIN,DIRECT 0.3 MG/DL (<0.4); BILIRUBIN,TOTAL 0.8 MG/DL (0.3-1.2); CHOLESTEROL RISK RATIO 3.92 (<5); CREATININE FOR GFR 1.11 MG/DL (0.55-1.30); GLOMERULAR FILTRATION RATE 58.6 (>60); HDL CHOLESTEROL 36.2 MG/DL (>40); LDL CHOLESTEROL 89.4 MG/DL (<100); MAGNESIUM LEVEL 2.3 MG/DL (1.8-2.4); NON-HDL-C 105.8 MG/DL; POTASSIUM SERUM 5.1 MMOL/L (3.5-5.1); TOTAL PROTEIN 6.7 G/DL (5.7-8.2)
== END ==
LOC: M PLALAB 14:11
PROVIDERS: ATTEND Nurse Practitioner Family
DX: E78.5 Hyperlipidemia, unspecified (principal)

== ENCOUNTER → 2024-02-28 | Outpatient (CLI) | payer OTHER ==
[2024-02-28 15:17] LABS: BASO # 0.1 10^3/uL (0.0-0.2); EOS # 0.1 10^3/uL (0.0-0.5); EOS % 1.2 % (0.0-3.0); HEMATOCRIT 43.3 % (36.0-47.0); HEMOGLOBIN 12.9 g/dl (12.0-15.5); LYMPH # 1.4 10^3/uL (1.5-5.0); LYMPH % 16.7 % (24.0-44.0); MEAN CORPUSCULAR HEMOGLOBIN 24.3 pg (27.0-33.0); MEAN CORPUSCULAR HGB CONC 29.8 g/dl (32.0-36.5); MEAN CORPUSCULAR VOLUME 81.7 fl (80.0-96.0); MONO # 0.5 10^3/uL (0.0-0.8); MONO % 5.9 % (2.0-8.0); NEUTROPHILS # 6.2 10^3/uL (1.5-8.5); NEUTROPHILS % 74.8 % (36.0-66.0); PLATELET COUNT, AUTOMATED 465 10^3/uL (150-450); WHITE BLOOD COUNT 8.3 10^3/uL (4.0-10.0)
[2024-02-28 15:48] LABS: CALCIUM LEVEL 9.5 MG/DL (8.5-10.1); CHOLESTEROL RISK RATIO 3.83 (<5); CREATININE FOR GFR 1.14 MG/DL (0.55-1.30); GLOMERULAR FILTRATION RATE 56.8 (>60); HDL CHOLESTEROL 37.3 MG/DL (>40); LDL CHOLESTEROL 89.9 MG/DL (<100); NON-HDL-C 105.7 MG/DL; POTASSIUM SERUM 5.2 MMOL/L (3.5-5.1)
== END ==
LOC: M PLALAB 14:08
PROVIDERS: ATTEND Internal Medicine Interventional Cardiology
DX: I42.9 Cardiomyopathy, unspecified (principal)

== ENCOUNTER → 2024-03-20 | Outpatient (CLI) | payer OTHER ==
[2024-03-20 15:50] LABS: CREATININE FOR GFR 1.06 MG/DL (0.55-1.30); GLOMERULAR FILTRATION RATE > 60.0 (>60)
== END ==
LOC: M PLALAB 13:56
PROVIDERS: ATTEND Internal Medicine Interventional Cardiology
DX: I42.9 Cardiomyopathy, unspecified (principal)

== ENCOUNTER 2024-04-05 00:24 | Emergency (ER) | payer OTHER ==
[~2024-04-05] VITALS: Ht 160 cm; Wt 88.6 kg
[2024-04-05] MEDS: NS 1,000 ML IV ONE (00:57)
[2024-04-05] MEDS: FAMOTIDINE 20MG/2ML VIAL IVP ONE (00:57)
[2024-04-05] MEDS: methylPREDNISolone 125MG 2ML VIAL IV ONE (00:58)
[2024-04-05] MEDS: diphenhydrAMINE 50MG/ML VIAL IV STA (00:58)
[2024-04-05 00:59] LABS: BASO # 0.1 10^3/uL (0.0-0.2); BASO % 0.6 % (0.0-1.0); EOS # 0.1 10^3/uL (0.0-0.5); EOS % 0.9 % (0.0-3.0); HEMOGLOBIN 14.9 g/dl (12.0-15.5); LYMPH # 2.9 10^3/uL (1.5-5.0); LYMPH % 20.6 % (24.0-44.0); MEAN CORPUSCULAR HGB CONC 31.7 g/dl (32.0-36.5); MEAN CORPUSCULAR VOLUME 82.2 fl (80.0-96.0); MONO # 0.7 10^3/uL (0.0-0.8); MONO % 5.2 % (2.0-8.0); NEUTROPHILS # 10.1 10^3/uL (1.5-8.5); NEUTROPHILS % 72.3 % (36.0-66.0); PLATELET COUNT, AUTOMATED 425 10^3/uL (150-450); RED BLOOD COUNT 5.72 10^6/uL (4.00-5.40); VENOUS BASE EXCESS 2.4 (-2.0-2.0); VENOUS HCO3 25.9 MMOL/L (23.0-27.0); VENOUS O2 SATURATION 50.3 % (60.0-80.0); VENOUS PARTIAL PRESSURE CO2 36.9 mmHg (38.0-50.0); VENOUS PARTIAL PRESSURE O2 26.8 mmHg (30.0-50.0); VENOUS PH 7.464 UNITS (7.330-7.430); VENOUS STANDARD HCO3 25.3 MMOL/L; WHITE BLOOD COUNT 14.1 10^3/uL (4.0-10.0)
[2024-04-05 02:39] LABS: ALBUMIN 4.2 G/DL (3.2-5.2); BILIRUBIN,DIRECT 0.2 MG/DL (<0.4); BILIRUBIN,TOTAL 0.7 MG/DL (0.3-1.2); CALCIUM LEVEL 10.8 MG/DL (8.5-10.1); CREATININE FOR GFR 1.13 MG/DL (0.55-1.30); GLOMERULAR FILTRATION RATE 57.4 (>60); TOTAL PROTEIN 7.5 G/DL (5.7-8.2)
[2024-04-05 04:39] LABS: BARBITURATES URINE NEGATIVE (NEGATIVE); BENZODIAZEPINES URINE NEGATIVE (NEGATIVE); CANNABINOIDS URINE NEGATIVE (NEGATIVE); COCAINE METABOLITE URINE NEGATIVE (NEGATIVE); METHADONE URINE NEGATIVE (NEGATIVE); OPIATES URINE NEGATIVE (NEGATIVE); PHENCYCLIDINE URINE NEGATIVE (NEGATIVE)
[2024-04-05] MEDS ORDERED: HYDR-3363 PO (04:46)
[2024-04-05] MEDS ORDERED: PEPC1TAB5 PO (04:46)
[2024-04-05] MEDS ORDERED: PRED20TA PO (04:46)
[2024-04-05] MEDS: ALBUTEROL SULFATE 2.5MG/0.5ML INH NEB SOLN NEB ONE (04:59)
[2024-04-05 05:00] VITALS: BP 124/65
[2024-04-05 05:05] LABS: AMPHETAMINES LEVEL URINE POSITIVE (NEGATIVE)
[2024-04-05 05:09] VITALS: TEMP 97.6; O2SAT 99
[2024-04-05] MEDS ORDERED: LASI40TA9 PO (05:24)
== END 2024-04-05 05:15 | disposition home or self-care (01) ==
LOC: M ED 00:24
DX: T78.40XA Allergy, unspecified, initial encounter (principal); X58.XXXA Exposure to other specified factors, initial encounter; Y92.89 Other specified places as the place of occurrence of the external cause; Y93.89 Activity, other specified; Y99.8 Other external cause status; I50.20 Unspecified systolic (congestive) heart failure; Z79.899 Other long term (current) drug therapy
CPT/HCPCS: 71045; 80048; 80076; 80307; 81001; 82803; 83605; 85025; 93005; 94640; 96374; 96375; 99285; J1200; J2919; S0028

== ENCOUNTER → 2024-07-23 | Outpatient (REF) | payer OTHER ==
[~2024-07-23] MED LIST changes: +HYDR-3363 PO; +LASI40TA9 PO; +PEPC1TAB5 PO; +PRED20TA PO
== END ==
LOC: M LAB REF 20:10
PROVIDERS: ATTEND Physician Assistant
DX: B34.9 Viral infection, unspecified (principal)

== ENCOUNTER 2024-08-05 20:04 | Emergency (ER) | payer OTHER ==
[~2024-08-05] VITALS: Ht 162.6 cm; Wt 99.5 kg
[2024-08-05] MEDS: KETOROLAC 30 MG/ML 1ML VIAL IV ONE (21:15)
[2024-08-05] MEDS: ACETAMINOPHEN *IV* 1,000 MG in IV 1 EA IV ONE (21:15)
[2024-08-05 21:16] LABS: BASO % 0.4 % (0.0-1.0); EOS % 0.2 % (0.0-3.0); HEMATOCRIT 39.7 % (36.0-47.0); HEMOGLOBIN 12.9 g/dl (12.0-15.5); LYMPH # 0.8 10^3/uL (1.5-5.0); LYMPH % 7.4 % (24.0-44.0); MEAN CORPUSCULAR HGB CONC 32.5 g/dl (32.0-36.5); MEAN CORPUSCULAR VOLUME 92.3 fl (80.0-96.0); MONO # 0.6 10^3/uL (0.0-0.8); MONO % 5.7 % (2.0-8.0); NEUTROPHILS # 9.7 10^3/uL (1.5-8.5); NEUTROPHILS % 85.8 % (36.0-66.0); PLATELET COUNT, AUTOMATED 244 10^3/uL (150-450); WHITE BLOOD COUNT 11.3 10^3/uL (4.0-10.0)
[2024-08-05 21:40] LABS: AMYLASE 52 U/L (30-118)
[2024-08-05 21:41] LABS: ALBUMIN 3.1 G/DL (3.2-5.2); ALKALINE PHOSPHATASE 93 U/L (35-104); ALT/SGPT 49 U/L (7.0-40); AST/SGOT 41 U/L (<34); BILIRUBIN,DIRECT 0.2 MG/DL (<0.4); BILIRUBIN,TOTAL 0.7 MG/DL (0.3-1.2); BLOOD UREA NITROGEN 6 MG/DL (9-23); CALCIUM LEVEL 8.4 MG/DL (8.5-10.1); CARBON DIOXIDE LEVEL 26 MMOL/L (20-31); CHLORIDE LEVEL 107 MMOL/L (98-107); CREATININE FOR GFR 0.81 MG/DL (0.55-1.30); GLOMERULAR FILTRATION RATE > 60.0 (>60); GLUCOSE, FASTING 97 MG/DL (60-100); SODIUM LEVEL 137 MMOL/L (136-145); TOTAL PROTEIN 6.5 G/DL (5.7-8.2)
[2024-08-05 21:48] LABS: PROCALCITONIN <0.04 ng/ml
[2024-08-05 22:10] LABS: APPEARANCE, URINE CLEAR (CLEAR); BACTERIA, URINE AUTO NEGATIVE (NEGATIVE); BILIRUBIN, URINE AUTO NEGATIVE (NEGATIVE); BLOOD, URINE BLOOD NEGATIVE (NEGATIVE); COLOR, URINE YELLOW (YELLOW); GLUCOSE, URINE (UA) AUTO NEGATIVE (NEGATIVE); KETONE, URINE AUTO NEGATIVE (NEGATIVE); LEUKOCYTE ESTERASE, URINE AUTO NEGATIVE (NEGATIVE); MUCUS, URINE SMALL (NEGATIVE); NITRITE, URINE AUTO NEGATIVE (NEGATIVE); PROTEIN, URINE AUTO NEGATIVE (NEGATIVE); RBC, URINE AUTO 0 /HPF (0-3); SQUAMOUS EPITHELIAL CELL UR AU 1 /HPF (0-6); UROBILINOGEN, URINE AUTO 0.2 mg/dL (0.0-2.0); WBC, URINE AUTO 0 /HPF (0-3)
[2024-08-05 22:22] LABS: INR 1.05; PARTIAL THROMBOPLASTIN TIME 30.9 SECONDS (24.8-34.2)
[2024-08-05] MEDS ORDERED: AMOX875T2 PO (22:23)
[2024-08-05] MEDS ORDERED: ZITHTAB PO (22:23)
[2024-08-05] MEDS: cefTRIAXone SOD 2 GM in DEXTROSE 5% (D5W) ADV/MINI-BAG 50 ML IV ONE (22:25)
[2024-08-05 22:30] VITALS: BP 123/67; TEMP 98; O2SAT 96
[2024-08-05] MEDS ORDERED: FLUC10TA PO (22:46)
== END 2024-08-05 23:20 | disposition home or self-care (01) ==
LOC: M ED 20:04
DX: J18.9 Pneumonia, unspecified organism (principal); I25.119 Atherosclerotic heart disease of native coronary artery with unspecified angina pectoris; I50.22 Chronic systolic (congestive) heart failure; F17.210 Nicotine dependence, cigarettes, uncomplicated; F10.10 Alcohol abuse, uncomplicated; Z79.1 Long term (current) use of non-steroidal anti-inflammatories (NSAID); Z79.2 Long term (current) use of antibiotics; Z79.52 Long term (current) use of systemic steroids; Z79.899 Other long term (current) drug therapy
CPT/HCPCS: 71045; 80048; 80076; 81001; 82150; 83605; 84145; 85025; 85610; 85730; 86140; 87040; 87086; 87486; 87581; 87633; 87798; 96365; 96366; 96375; 99284; J0131; J0696; J1885

== ENCOUNTER → 2024-09-10 | Outpatient (REF) | payer OTHER ==
[~2024-09-10] MED LIST changes: +AMOX875T2 PO; +FLUC10TA PO; +ZITHTAB PO
[2024-09-10 18:21] LABS: BASO # 0.1 10^3/uL (0.0-0.2); BASO % 1.1 % (0.0-1.0); EOS # 0.1 10^3/uL (0.0-0.5); EOS % 1.5 % (0.0-3.0); HEMATOCRIT 42.7 % (36.0-47.0); HEMOGLOBIN 13.6 g/dl (12.0-15.5); LYMPH # 1.5 10^3/uL (1.5-5.0); LYMPH % 22.8 % (24.0-44.0); MEAN CORPUSCULAR HEMOGLOBIN 29.1 pg (27.0-33.0); MEAN CORPUSCULAR HGB CONC 31.9 g/dl (32.0-36.5); MEAN CORPUSCULAR VOLUME 91.2 fl (80.0-96.0); MONO # 0.4 10^3/uL (0.0-0.8); MONO % 6.4 % (2.0-8.0); NEUTROPHILS # 4.5 10^3/uL (1.5-8.5); PLATELET COUNT, AUTOMATED 322 10^3/uL (150-450); RED BLOOD COUNT 4.68 10^6/uL (4.00-5.40); WHITE BLOOD COUNT 6.6 10^3/uL (4.0-10.0)
[2024-09-10 18:33] LABS: ERYTHROCYTE SEDIMENTATION RATE 24 mm/hr (0-20)
[2024-09-10 18:53] LABS: C REACTIVE PROTEIN QUANTITATIV < 0.50 MG/DL (<1.0)
[2024-09-10 18:55] LABS: ALKALINE PHOSPHATASE 109 U/L (35-104); ALT/SGPT 38 U/L (7.0-40); AST/SGOT 31 U/L (<34); BILIRUBIN,TOTAL 0.3 MG/DL (0.3-1.2); BLOOD UREA NITROGEN 13 MG/DL (9-23); CALCIUM LEVEL 9.4 MG/DL (8.5-10.1); CARBON DIOXIDE LEVEL 23 MMOL/L (20-31); CHLORIDE LEVEL 103 MMOL/L (98-107); CHOLESTEROL LEVEL 242 MG/DL (<200); CHOLESTEROL RISK RATIO 3.73 (<5); CREATININE FOR GFR 0.77 MG/DL (0.55-1.30); GLOMERULAR FILTRATION RATE > 60.0 (>60); GLUCOSE, FASTING 81 MG/DL (60-100); HDL CHOLESTEROL 64.8 MG/DL (>40); LDL CHOLESTEROL 148.2 MG/DL (<100); NON-HDL-C 177.2 MG/DL; POTASSIUM SERUM 4.1 MMOL/L (3.5-5.1); SODIUM LEVEL 135 MMOL/L (136-145); TOTAL PROTEIN 7.4 G/DL (5.7-8.2); TRIGLYCERIDES LEVEL 145 MG/DL (<150)
[2024-09-10 18:56] LABS: THYROID STIMULATING HORMONE 1.883 uIU/ML (0.55-4.78)
== END ==
LOC: M LAB REF 16:34
PROVIDERS: ATTEND Nurse Practitioner Family
DX: R69 Illness, unspecified (principal); I50.9 Heart failure, unspecified; E66.3 Overweight; R53.83 Other fatigue

== ENCOUNTER 2025-04-01 00:52 | Emergency (ER) | payer OTHER ==
[~2025-04-01] VITALS: Ht 160 cm; Wt 94.1 kg
[~2025-04-01 00:52] MED LIST changes: +CLOM50TA31; -CLOM50TA9
[2025-04-01 00:58] VITALS: TEMP 96.7
[2025-04-01 01:44] LABS: VENOUS BASE EXCESS -3.2 (-2.0-2.0); VENOUS HCO3 19.4 MMOL/L (23.0-27.0); VENOUS O2 SATURATION 98.0 % (60.0-80.0); VENOUS PARTIAL PRESSURE CO2 28.4 mmHg (38.0-50.0); VENOUS PARTIAL PRESSURE O2 114.2 mmHg (30.0-50.0); VENOUS PH 7.453 UNITS (7.330-7.430); VENOUS STANDARD HCO3 21.8 MMOL/L; VENOUS TOTAL CO2 20.3 MMOL/L (24.0-28.0)
[2025-04-01 01:50] LABS: BASO # 0.1 10^3/uL (0.0-0.2); BASO % 0.7 % (0.0-1.0); EOS # 0.2 10^3/uL (0.0-0.5); EOS % 1.5 % (0.0-3.0); LYMPH # 2.2 10^3/uL (1.5-5.0); LYMPH % 19.0 % (24.0-44.0); MONO # 0.5 10^3/uL (0.0-0.8); MONO % 4.2 % (2.0-8.0); NEUTROPHILS # 8.7 10^3/uL (1.5-8.5); NEUTROPHILS % 74.3 % (36.0-66.0); PLATELET COUNT, AUTOMATED 408 10^3/uL (150-450)
[2025-04-01] MEDS ORDERED: ISOVUE-370 76% 100 ML VIAL As Ordered ONE (02:16)
[2025-04-01 02:17] LABS: CPK CREATINE PHOSPHOKINASE 76 U/L (34-145)
[2025-04-01 02:18] LABS: ALT/SGPT 45 U/L (7.0-40); AST/SGOT 35 U/L (<34); CALCIUM LEVEL 8.7 MG/DL (8.5-10.1); CARBON DIOXIDE LEVEL 20 MMOL/L (20-31); CHLORIDE LEVEL 106 MMOL/L (98-107); CK-MB VALUE MASS 2.5 NG/ML (<3.6); CREATININE FOR GFR 0.80 MG/DL (0.55-1.30); GLOMERULAR FILTRATION RATE > 90.0 (>60); MB/CK RELATIVE INDEX 3.28 (< OR =4); POTASSIUM SERUM 4.2 MMOL/L (3.5-5.1); SODIUM LEVEL 136 MMOL/L (136-145)
[2025-04-01] MEDS: METOPROLOL TART 25 MG TABLET PO ONE (02:33)
[2025-04-01] MEDS: FUROSEMIDE 40 MG/4 ML VIAL IV ONE (02:33)
[2025-04-01 03:27] VITALS: BP 147/97
[2025-04-01] MEDS: METOPROLOL 5 MG/5 ML VIAL IV STA (03:27)
[2025-04-01] MEDS: ONDANSETRON 4MG 2ML VIAL IV ONE (04:00)
[2025-04-01] MEDS: MAG SULF 1GM/100ML (MAG RUN) 1 GM in IV 1 EA IV ONE (04:00)
[2025-04-01 04:40] LABS: CK-MB VALUE MASS 3.1 NG/ML (<3.6)
[2025-04-01 04:43] LABS: CPK CREATINE PHOSPHOKINASE 88.0 U/L (34-145); MB/CK RELATIVE INDEX 3.52 (< OR =4)
[2025-04-01] MEDS: ENTRESTO 24-26 MG TABLET (SACUBITRIL/VALSARTAN) PO STA (05:10)
[2025-04-01] MEDS ORDERED: HOME MED LIST COMPLETE! XX SCH (06:00)
[2025-04-01 06:16] VITALS: BP 112/82; O2SAT 98
[2025-04-01] MEDS ORDERED: METO25TA4 PO (06:31)
[2025-04-01] MEDS ORDERED: ENTR1TAB PO (06:31)
[2025-04-01] MEDS ORDERED: LASI40TA9 PO (06:31)
== END 2025-04-01 06:46 | disposition home or self-care (01) ==
LOC: M ED 00:52
DX: I50.22 Chronic systolic (congestive) heart failure (principal); R06.00 Dyspnea, unspecified; R00.0 Tachycardia, unspecified; I45.81 Long QT syndrome; I11.0 Hypertensive heart disease with heart failure; F17.210 Nicotine dependence, cigarettes, uncomplicated; Z79.899 Other long term (current) drug therapy
CPT/HCPCS: 71045; 71275; 80047; 80048; 80076; 82550; 82553; 82803; 83605; 83880; 84484; 85025; 87486; 87581; 87633; 87798; 93005; 93041; 94760; 96365; 96375; 99285; J0616; J1938; J2405; J3475; Q9967

== ENCOUNTER 2025-04-22 09:32 | Inpatient (IN) | payer OTHER ==
[~2025-04-22] VITALS: Ht 160 cm; Wt 91.9 kg
[~2025-04-22 09:32] MED LIST changes: +ENTR1TAB PO; +METO25TA4 PO
[2025-04-22 11:39] LABS: VENOUS BASE EXCESS -1.6 (-2.0-2.0); VENOUS HCO3 21.3 MMOL/L (23.0-27.0); VENOUS O2 SATURATION 98.9 % (60.0-80.0); VENOUS PARTIAL PRESSURE CO2 30.6 mmHg (38.0-50.0); VENOUS PARTIAL PRESSURE O2 134.1 mmHg (30.0-50.0); VENOUS PH 7.460 UNITS (7.330-7.430); VENOUS STANDARD HCO3 23.2 MMOL/L; VENOUS TOTAL CO2 22.2 MMOL/L (24.0-28.0)
[2025-04-22 11:44] LABS: BASO # 0.1 10^3/uL (0.0-0.2); BASO % 0.8 % (0.0-1.0); EOS # 0.2 10^3/uL (0.0-0.5); EOS % 2.5 % (0.0-3.0); LYMPH # 1.6 10^3/uL (1.5-5.0); LYMPH % 17.1 % (24.0-44.0); MONO # 0.5 10^3/uL (0.0-0.8); MONO % 5.4 % (2.0-8.0); NEUTROPHILS # 7.0 10^3/uL (1.5-8.5); NEUTROPHILS % 73.9 % (36.0-66.0); PLATELET COUNT, AUTOMATED 337 10^3/uL (150-450)
[2025-04-22 12:04] LABS: INR 1.13
[2025-04-22 12:16] LABS: CK-MB VALUE MASS 2.5 NG/ML (<3.6)
[2025-04-22 12:19] LABS: ALT/SGPT 52 U/L (7.0-40); AST/SGOT 50 U/L (<34); CALCIUM LEVEL 8.3 MG/DL (8.5-10.1); CARBON DIOXIDE LEVEL 23 MMOL/L (20-31); CHLORIDE LEVEL 106 MMOL/L (98-107); CREATININE FOR GFR 0.82 MG/DL (0.55-1.30); GLOMERULAR FILTRATION RATE > 90.0 (>60); POTASSIUM SERUM 5.1 MMOL/L (3.5-5.1); SODIUM LEVEL 139 MMOL/L (136-145)
[2025-04-22 12:21] LABS: FREE T4 1.16 NG/DL (0.89-1.76)
[2025-04-22 12:30] LABS: HCG, SERUM QUALITATIVE NEGATIVE (NEGATIVE)
[2025-04-22 12:31] LABS: CPK CREATINE PHOSPHOKINASE 102 U/L (34-145); MB/CK RELATIVE INDEX 2.45 (< OR =4)
[2025-04-22 13:08] LABS: CK-MB VALUE MASS 2.5 NG/ML (<3.6)
[2025-04-22 13:09] LABS: CPK CREATINE PHOSPHOKINASE 92.0 U/L (34-145); MB/CK RELATIVE INDEX 2.71 (< OR =4)
[2025-04-22] MEDS: FUROSEMIDE 40 MG/4 ML VIAL IV ONE (13:59)
[2025-04-22] MEDS ORDERED: ISOVUE-370 76% 100 ML VIAL As Ordered ONE (14:03)
[2025-04-22 16:14] LABS: CK-MB VALUE MASS 2.7 NG/ML (<3.6); CPK CREATINE PHOSPHOKINASE 104.0 U/L (34-145); MB/CK RELATIVE INDEX 2.59 (< OR =4)
[2025-04-22] MEDS ORDERED: METO1TAB87 PO (17:18)
[2025-04-22] MEDS ORDERED: FURO40TA2 PO (17:18)
[2025-04-22] MEDS ORDERED: ENTR1TAB PO (17:18)
[2025-04-22] MEDS ORDERED: DEXTROSE 50% 50 ML SYRINGE IV PRN (17:20)
[2025-04-22] MEDS ORDERED: GLUCAGON INJ 1 MG VIAL SC PRN (17:20)
[2025-04-22] MEDS ORDERED: HOME MED LIST COMPLETE! XX SCH (17:20)
[2025-04-22] MEDS ORDERED: GLUCOSE 4 GM CHEW PO PRN (17:20)
[2025-04-22] MEDS: INSULIN LISPRO (NovoLOG) PER UNIT SC SCH ×2 (18:53→21:00)
[2025-04-22 20:39] LABS: CALCIUM LEVEL 8.5 MG/DL (8.5-10.1); MAGNESIUM LEVEL 1.7 MG/DL (1.8-2.4)
[2025-04-22 20:40] LABS: CK-MB VALUE MASS 2.3 NG/ML (<3.6)
[2025-04-22 20:41] LABS: CPK CREATINE PHOSPHOKINASE 74.0 U/L (34-145); MB/CK RELATIVE INDEX 3.1 (< OR =4)
[2025-04-22 21:24] VITALS: BP 128/90; TEMP 97.5; O2SAT 99
[2025-04-22] MEDS: FUROSEMIDE 40 MG/4 ML VIAL IV SCH (21:25)
[2025-04-22] MEDS: HEPARIN SOD 5000 UNITS/ML 1 ML VIAL/SYRINGE SQ SCH (21:25)
[2025-04-22] MEDS: METOPROLOL TART 25 MG TABLET PO SCH (21:26)
[2025-04-23] VITALS (8 sets, daily range): BP systolic 111–128; BP diastolic 72–94; TEMP 96.8–98.6; O2SAT 97–100
[2025-04-23 04:49] LABS: PLATELET COUNT, AUTOMATED 334 10^3/uL (150-450)
[2025-04-23 05:16] LABS: CK-MB VALUE MASS 1.7 NG/ML (<3.6)
[2025-04-23 05:18] LABS: CALCIUM LEVEL 8.6 MG/DL (8.5-10.1); CARBON DIOXIDE LEVEL 24 MMOL/L (20-31); CHLORIDE LEVEL 105 MMOL/L (98-107); CHOLESTEROL LEVEL 113 MG/DL (<200); CHOLESTEROL RISK RATIO 3.89 (<5); CPK CREATINE PHOSPHOKINASE 68 U/L (34-145); CREATININE FOR GFR 1.06 MG/DL (0.55-1.30); GLOMERULAR FILTRATION RATE 68.5 (>60); LDL CHOLESTEROL 54.4 MG/DL (<100); MAGNESIUM LEVEL 1.9 MG/DL (1.8-2.4); MB/CK RELATIVE INDEX 2.50 (< OR =4); NON-HDL-C 84.0 MG/DL; POTASSIUM SERUM 4.2 MMOL/L (3.5-5.1); SODIUM LEVEL 140 MMOL/L (136-145); TRIGLYCERIDES LEVEL 148 MG/DL (<150)
[2025-04-23 05:52] LABS: ESTIMATED AVERAGE GLUCOSE 117.0 MG/DL (60-110); HEPATITIS C VIRUS ABY INDEX 0.07 INDEX (<0.8)
[2025-04-23] MEDS: ACETAMINOPHEN 325 MG TAB PO PRN (07:51)
[2025-04-23] MEDS: FUROSEMIDE 40 MG/4 ML VIAL IV SCH ×2 (09:42→17:04)
[2025-04-23] MEDS: ONDANSETRON 4MG 2ML VIAL IV PRN (13:01)
[2025-04-23] MEDS ORDERED: diphenhydrAMINE 50 MG/ML VIAL IM STA (22:26)
[2025-04-24] VITALS (19 sets, daily range): BP systolic 110–142; BP diastolic 70–101; TEMP 97.3–98; O2SAT 89–100
[2025-04-24 05:00] LABS: PLATELET COUNT, AUTOMATED 352 10^3/uL (150-450)
[2025-04-24 05:19] LABS: CALCIUM LEVEL 8.5 MG/DL (8.5-10.1); CARBON DIOXIDE LEVEL 26.0 MMOL/L (20-31); CHLORIDE LEVEL 100.0 MMOL/L (98-107); CREATININE FOR GFR 1.37 MG/DL (0.55-1.30); GLOMERULAR FILTRATION RATE 50.4 (>60); MAGNESIUM LEVEL 1.7 MG/DL (1.8-2.4); POTASSIUM SERUM 4.3 MMOL/L (3.5-5.1); SODIUM LEVEL 137.0 MMOL/L (136-145)
[2025-04-24] MEDS ORDERED: BUMETANIDE 1 MG TAB PO SCH (09:00)
[2025-04-24 09:13] LABS: IRON (FE) 20.0 UG/DL (50-170); PERCENT SATURATION 4.0 % (13.2-45.0)
[2025-04-24 09:18] LABS: ALT/SGPT 219.0 U/L (7.0-40); AST/SGOT 273.0 U/L (<34)
[2025-04-24] MEDS: BUMETANIDE 1 MG/4 ML VIAL IV ONE (09:27)
[2025-04-24] MEDS: MILRINONE/DEXTROSE 20 MG in IV 1 EA IV SCH (10:00)
[2025-04-24] MEDS: BUMETANIDE IV SCH (10:34)
[2025-04-24] MEDS: MAG SULF 1GM/100ML (MAG RUN) 1 GM in IV 1 EA IV SCH (12:00)
[2025-04-24 12:33] LABS: CALCIUM LEVEL 8.4 MG/DL (8.5-10.1); CARBON DIOXIDE LEVEL 27.0 MMOL/L (20-31); CHLORIDE LEVEL 100.0 MMOL/L (98-107); CREATININE FOR GFR 1.08 MG/DL (0.55-1.30); GLOMERULAR FILTRATION RATE 67.0 (>60); POTASSIUM SERUM 3.6 MMOL/L (3.5-5.1); SODIUM LEVEL 139.0 MMOL/L (136-145)
[2025-04-24] MEDS: POTASSIUM CHLORIDE 10MEQ SR TABLET PO ONE (13:50)
[2025-04-24 16:07] LABS: APPEARANCE, URINE CLEAR (CLEAR); BACTERIA, URINE AUTO 1+ (NEGATIVE); BILIRUBIN, URINE AUTO NEGATIVE (NEGATIVE); BLOOD, URINE BLOOD NEGATIVE (NEGATIVE); GLUCOSE, URINE (UA) AUTO NEGATIVE (NEGATIVE); KETONE, URINE AUTO NEGATIVE (NEGATIVE); LEUKOCYTE ESTERASE, URINE AUTO NEGATIVE (NEGATIVE); NITRITE, URINE AUTO NEGATIVE (NEGATIVE); PROTEIN, URINE AUTO NEGATIVE (NEGATIVE); RBC, URINE AUTO 0 /HPF (0-3); SPECIFIC GRAVITY URINE AUTO 1.004 (1.002-1.035); SQUAMOUS EPITHELIAL CELL UR AU 0 /HPF (0-6); UROBILINOGEN, URINE AUTO 0.2 mg/dL (0.0-2.0); WBC, URINE AUTO 1 /HPF (0-3)
[2025-04-24 18:51] LABS: CALCIUM LEVEL 8.3 MG/DL (8.5-10.1); CARBON DIOXIDE LEVEL 29.0 MMOL/L (20-31); CHLORIDE LEVEL 98.0 MMOL/L (98-107); CREATININE FOR GFR 1.02 MG/DL (0.55-1.30); GLOMERULAR FILTRATION RATE 71.8 (>60); POTASSIUM SERUM 3.8 MMOL/L (3.5-5.1); SODIUM LEVEL 138.0 MMOL/L (136-145)
[2025-04-25] VITALS (17 sets, daily range): BP systolic 114–176; BP diastolic 63–100; TEMP 97.8–98.4; O2SAT 94–99
[2025-04-25 00:50] LABS: CALCIUM LEVEL 8.4 MG/DL (8.5-10.1); CARBON DIOXIDE LEVEL 29.0 MMOL/L (20-31); CHLORIDE LEVEL 94.0 MMOL/L (98-107); CREATININE FOR GFR 1.07 MG/DL (0.55-1.30); GLOMERULAR FILTRATION RATE 67.8 (>60); POTASSIUM SERUM 3.9 MMOL/L (3.5-5.1); SODIUM LEVEL 136.0 MMOL/L (136-145)
[2025-04-25] MEDS: BUMETANIDE IV SCH (03:28)
[2025-04-25 04:35] LABS: PLATELET COUNT, AUTOMATED 337 10^3/uL (150-450)
[2025-04-25 05:03] LABS: ALT/SGPT 416.0 U/L (7.0-40); AST/SGOT 337.0 U/L (<34); CALCIUM LEVEL 8.4 MG/DL (8.5-10.1); CARBON DIOXIDE LEVEL 31.0 MMOL/L (20-31); CHLORIDE LEVEL 96.0 MMOL/L (98-107); CREATININE FOR GFR 0.98 MG/DL (0.55-1.30); GLOMERULAR FILTRATION RATE 75.3 (>60); MAGNESIUM LEVEL 1.8 MG/DL (1.8-2.4); PHOSPHORUS LEVEL 2.5 MG/DL (2.5-4.9); POTASSIUM SERUM 3.5 MMOL/L (3.5-5.1); SODIUM LEVEL 138.0 MMOL/L (136-145)
[2025-04-25] MEDS: MAG SULF 1GM/100ML (MAG RUN) 1 GM in IV 1 EA IV ONE (07:29)
[2025-04-25] MEDS: CALCIUM CHLORIDE 10% 1 GM in D5W 100 ML IV ONE (08:30)
[2025-04-25] MEDS: FUROSEMIDE 40 MG TAB PO SCH (10:35)
[2025-04-25] MEDS ORDERED: JARD1TAB PO (14:20)
[2025-04-25] MEDS ORDERED: TOPR50TA PO (14:21)
[2025-04-25] MEDS: FERRIC CARBOXYMALTOSE INJ 750 MG, VIAL MATE ADAPTER 1 EACH in NS 100 ML IV STA (14:28)
== END 2025-04-25 15:00 | disposition left against medical advice (07) | DRG 194 ==
LOC: M ED 09:32 → M ED INP 16:48 → M ICU 21:13
PROVIDERS: ADMIT General Practice; ATTEND Student in an Organized Health Care Education/Training Program
PROC: B246ZZZ Ultrasonography of Right and Left Heart (ICD-10-PCS; principal; 2025-04-23)
DX: I11.0 Hypertensive heart disease with heart failure (principal); I27.20 Pulmonary hypertension, unspecified; I08.1 Rheumatic disorders of both mitral and tricuspid valves; F32.A Depression, unspecified; E11.9 Type 2 diabetes mellitus without complications; D50.9 Iron deficiency anemia, unspecified; K76.1 Chronic passive congestion of liver; E66.812 Obesity, class 2; G47.33 Obstructive sleep apnea (adult) (pediatric); F12.10 Cannabis abuse, uncomplicated; I50.82 Biventricular heart failure; E78.5 Hyperlipidemia, unspecified; F41.9 Anxiety disorder, unspecified; I50.23 Acute on chronic systolic (congestive) heart failure; F17.210 Nicotine dependence, cigarettes, uncomplicated; R00.0 Tachycardia, unspecified; R74.01 Elevation of levels of liver transaminase levels; R94.31 Abnormal electrocardiogram [ECG] [EKG]; R09.02 Hypoxemia; R53.83 Other fatigue; F10.20 Alcohol dependence, uncomplicated; Z68.36 Body mass index [BMI] 36.0-36.9, adult; Z91.119 Patient's noncompliance with dietary regimen due to unspecified reason; Z91.148 Patient's other noncompliance with medication regimen for other reason; Z79.899 Other long term (current) drug therapy

== ENCOUNTER 2025-06-16 17:12 | Emergency (ER) | payer OTHER ==
[~2025-06-16] VITALS: Ht 160 cm; Wt 87.2 kg
[~2025-06-16 17:12] MED LIST changes: +FURO40TA2 PO; -IBUP-1022 PO; +IBUP600T42 PO; +JARD1TAB PO; +METO1TAB87 PO; +TOPR50TA PO
[2025-06-16 18:14] LABS: VENOUS BASE EXCESS 1.0 (-2.0-2.0); VENOUS HCO3 26.2 MMOL/L (23.0-27.0); VENOUS O2 SATURATION 81.4 % (60.0-80.0); VENOUS PARTIAL PRESSURE CO2 43.7 mmHg (38.0-50.0); VENOUS PARTIAL PRESSURE O2 48.1 mmHg (30.0-50.0); VENOUS PH 7.395 UNITS (7.330-7.430); VENOUS STANDARD HCO3 24.9 MMOL/L; VENOUS TOTAL CO2 27.5 MMOL/L (24.0-28.0)
[2025-06-16 18:18] LABS: BASO # 0.1 10^3/uL (0.0-0.2); BASO % 0.8 % (0.0-1.0); EOS # 0.1 10^3/uL (0.0-0.5); EOS % 0.5 % (0.0-3.0); LYMPH # 1.5 10^3/uL (1.5-5.0); LYMPH % 15.0 % (24.0-44.0); MONO # 0.4 10^3/uL (0.0-0.8); MONO % 3.6 % (2.0-8.0); NEUTROPHILS # 8.1 10^3/uL (1.5-8.5); NEUTROPHILS % 79.9 % (36.0-66.0); PLATELET COUNT, AUTOMATED 276 10^3/uL (150-450)
[2025-06-16 18:53] LABS: CK-MB VALUE MASS 2.2 NG/ML (<3.6)
[2025-06-16 18:54] LABS: ALT/SGPT 35.0 U/L (7.0-40); AST/SGOT 28.0 U/L (<34); CALCIUM LEVEL 8.9 MG/DL (8.5-10.1); CARBON DIOXIDE LEVEL 25.0 MMOL/L (20-31); CHLORIDE LEVEL 106.0 MMOL/L (98-107); CPK CREATINE PHOSPHOKINASE 69.0 U/L (34-145); CREATININE FOR GFR 0.98 MG/DL (0.55-1.30); GLOMERULAR FILTRATION RATE 75.3 (>60); MB/CK RELATIVE INDEX 3.18 (< OR =4); POTASSIUM SERUM 3.9 MMOL/L (3.5-5.1); SODIUM LEVEL 137.0 MMOL/L (136-145)
[2025-06-16 18:56] LABS: THYROXINE (T4) 4.9 UG/DL (4.5-10.9)
[2025-06-16] MEDS ORDERED: ISOVUE-370 76% 100 ML VIAL As Ordered ONE (20:29)
[2025-06-16 21:31] LABS: CK-MB VALUE MASS 1.9 NG/ML (<3.6)
[2025-06-16 21:33] LABS: CPK CREATINE PHOSPHOKINASE 57.0 U/L (34-145); MB/CK RELATIVE INDEX 3.33 (< OR =4)
[2025-06-16 22:54] VITALS: O2SAT 99
[2025-06-16] MEDS ORDERED: LASI40TA9 PO (23:06)
[2025-06-16 23:21] VITALS: BP 109/76; TEMP 96.5; O2SAT 97
== END 2025-06-16 23:25 | disposition home or self-care (01) ==
LOC: M ED 17:12
DX: I50.22 Chronic systolic (congestive) heart failure (principal); R00.0 Tachycardia, unspecified; I45.81 Long QT syndrome; I11.0 Hypertensive heart disease with heart failure; E78.5 Hyperlipidemia, unspecified; G47.33 Obstructive sleep apnea (adult) (pediatric); F41.9 Anxiety disorder, unspecified; F32.A Depression, unspecified; F12.10 Cannabis abuse, uncomplicated; Z79.899 Other long term (current) drug therapy
CPT/HCPCS: 36415; 71045; 71275; 80047; 80048; 80076; 82550; 82553; 82803; 83880; 84436; 84443; 84484; 85025; 87486; 87581; 87633; 87798; 93005; 93041; 94760; 99285; Q9967

== ENCOUNTER → 2025-06-20 | Outpatient (REF) | payer OTHER ==
[2025-06-20 17:14] LABS: BASO # 0.1 10^3/uL (0.0-0.2); BASO % 1.1 % (0.0-1.0); EOS # 0.1 10^3/uL (0.0-0.5); EOS % 0.5 % (0.0-3.0); LYMPH # 1.9 10^3/uL (1.5-5.0); LYMPH % 19.5 % (24.0-44.0); MONO # 0.5 10^3/uL (0.0-0.8); MONO % 4.8 % (2.0-8.0); NEUTROPHILS # 7.0 10^3/uL (1.5-8.5); NEUTROPHILS % 73.8 % (36.0-66.0); PLATELET COUNT, AUTOMATED 347 10^3/uL (150-450)
[2025-06-20 17:44] LABS: ALT/SGPT 48.0 U/L (7.0-40); AST/SGOT 40.0 U/L (<34); CALCIUM LEVEL 9.1 MG/DL (8.5-10.1); CARBON DIOXIDE LEVEL 25.0 MMOL/L (20-31); CHLORIDE LEVEL 104.0 MMOL/L (98-107); CREATININE FOR GFR 1.01 MG/DL (0.55-1.30); GLOMERULAR FILTRATION RATE 72.6 (>60); MAGNESIUM LEVEL 2.0 MG/DL (1.8-2.4); POTASSIUM SERUM 5.7 MMOL/L (3.5-5.1); SODIUM LEVEL 137.0 MMOL/L (136-145)
== END ==
LOC: M LAB REF 16:19
PROVIDERS: ATTEND Nurse Practitioner Family
DX: I50.9 Heart failure, unspecified (principal)

== ENCOUNTER → 2025-07-16 | Outpatient (CLI) | payer OTHER ==
[2025-07-16 17:32] LABS: BASO # 0.1 10^3/uL (0.0-0.2); BASO % 0.8 % (0.0-1.0); EOS # 0.2 10^3/uL (0.0-0.5); EOS % 2.4 % (0.0-3.0); LYMPH # 1.7 10^3/uL (1.5-5.0); LYMPH % 17.9 % (24.0-44.0); MONO # 0.5 10^3/uL (0.0-0.8); MONO % 5.4 % (2.0-8.0); NEUTROPHILS # 6.8 10^3/uL (1.5-8.5); NEUTROPHILS % 73.3 % (36.0-66.0); PLATELET COUNT, AUTOMATED 360 10^3/uL (150-450)
[2025-07-16 17:37] LABS: CALCIUM LEVEL 8.7 MG/DL (8.5-10.1); CARBON DIOXIDE LEVEL 25.0 MMOL/L (20-31); CHLORIDE LEVEL 101.0 MMOL/L (98-107); CREATININE FOR GFR 1.15 MG/DL (0.55-1.30); GLOMERULAR FILTRATION RATE 62.1 (>60); MAGNESIUM LEVEL 2.1 MG/DL (1.8-2.4); POTASSIUM SERUM 4.7 MMOL/L (3.5-5.1); SODIUM LEVEL 135.0 MMOL/L (136-145)
== END ==
LOC: M PLALAB 15:00
PROVIDERS: ATTEND Nurse Practitioner Family
DX: I50.22 Chronic systolic (congestive) heart failure (principal)

== ENCOUNTER → 2025-07-30 | Outpatient (REF) | payer OTHER ==
[2025-07-30 17:01] LABS: CALCIUM LEVEL 8.9 MG/DL (8.5-10.1); CARBON DIOXIDE LEVEL 25.0 MMOL/L (20-31); CHLORIDE LEVEL 104.0 MMOL/L (98-107); CREATININE FOR GFR 1.05 MG/DL (0.55-1.30); DIGOXIN LEVEL 0.6 NG/ML (0.8-2.0); GLOMERULAR FILTRATION RATE 69.3 (>60); MAGNESIUM LEVEL 2.0 MG/DL (1.8-2.4); POTASSIUM SERUM 4.1 MMOL/L (3.5-5.1); SODIUM LEVEL 142.0 MMOL/L (136-145)
== END ==
LOC: M LAB REF 16:09
PROVIDERS: ATTEND Nurse Practitioner Family
DX: I50.9 Heart failure, unspecified (principal)

== ENCOUNTER → 2025-08-13 | Outpatient (CLI) | payer OTHER ==
[2025-08-13 19:12] LABS: CALCIUM LEVEL 9.8 MG/DL (8.5-10.1); CARBON DIOXIDE LEVEL 31.0 MMOL/L (20-31); CHLORIDE LEVEL 98.0 MMOL/L (98-107); CREATININE FOR GFR 0.99 MG/DL (0.55-1.30); DIGOXIN LEVEL 0.5 NG/ML (0.8-2.0); GLOMERULAR FILTRATION RATE 74.4 (>60); MAGNESIUM LEVEL 2.1 MG/DL (1.8-2.4); POTASSIUM SERUM 4.8 MMOL/L (3.5-5.1); SODIUM LEVEL 137.0 MMOL/L (136-145)
== END ==
LOC: M PLALAB 16:25
PROVIDERS: ATTEND Nurse Practitioner Family
DX: I50.22 Chronic systolic (congestive) heart failure (principal)

== ENCOUNTER → 2025-09-09 | Outpatient (CLI) | payer OTHER ==
[2025-09-09 18:43] LABS: CALCIUM LEVEL 8.7 MG/DL (8.5-10.1); CARBON DIOXIDE LEVEL 26.0 MMOL/L (20-31); CHLORIDE LEVEL 102.0 MMOL/L (98-107); CREATININE FOR GFR 0.87 MG/DL (0.55-1.30); GLOMERULAR FILTRATION RATE 86.9 (>60); MAGNESIUM LEVEL 1.8 MG/DL (1.8-2.4); POTASSIUM SERUM 4.0 MMOL/L (3.5-5.1); SODIUM LEVEL 137.0 MMOL/L (136-145)
== END ==
LOC: M PLALAB 15:47
PROVIDERS: ATTEND Nurse Practitioner Family
DX: I50.22 Chronic systolic (congestive) heart failure (principal)